=== PATIENT | male | born 1975 | race Caucasian/White ===

== ENCOUNTER 2022-05-16 05:51 | Day surgery (SDC) | payer OTHER, SELFPAY ==
[2022-05-16] MEDS: Lactated Ringers 1,000 ML 15 ML IV (06:05)
[2022-05-16 06:15] VITALS: BP 120/88; PULSE 94; RESP 18; TEMP 37; O2SAT 95; BMI 36.1
--- NOTE | 2022-05-16 07:17 | HP.PCM_ITS ---
History and Physical Date of Admission: 05/16/22 [facility] [address] [place] [address] OFFICE VISIT Date of Service:? 04/03/22 MR#: [id number] Acct: [id number] Name:VON DUNCAN Rep #: [id number] : 1975 ? ? Provider: Dr. Killian Rudd, Age/Sex:? 47/M ? ? Location: [facility] [place] Status: Signed Intake Vital Signs ? 03/31/2211:49 Height 6 ft 6 in Intake Visit Reasons:?LEFT KNEE Chief Complaint: left knee pain Is patient in pain?: Yes (left knee) Pain scale (1-10): 4 Allergies No Known Allergies Allergy (Verified 04/03/22 14:16) Medications acetaminophen 650 mg tablet,extended release 650 mg PO Q12H 01/03/21 [History Confirmed 04/03/22] lisinopril 40 mg tablet tablet PO 01/03/21 [History Confirmed 04/03/22] atorvastatin 20 mg tablet 20 mg PO DAILY 02/13/22 [History Confirmed 04/03/22] hydrochlorothiazide 12.5 mg capsule 12.5 mg PO DAILY 02/13/22 [History Confirmed 04/03/22] meloxicam 15 mg tablet 15 mg PO DAILY #30 tabs 04/03/22 [Rx Confirmed 04/03/22] PFSH Social History?(Updated 02/13/22 @ 11:27 by Sandhya Oneil) Smoking Status:? Never smoker alcohol intake:? never HPI LEFT KNEE Chief Complaint: left knee pain Details: Parts of this documentation were recorded by a scribe, this documentation accurately reflects the service provided and the decisions made by me, Dr. Killian Rudd, DO 04/03/22 [id number]. VON STEWART is a 47 year old M here today for left knee pain. He is here to discuss left knee surgery d/t his [facility] injury. He rates his pain 4/10 today. He advises he is experiencing popping even while wearing his knee brace. He states that he did win approval from the [employer]'s [employer]. to proceed with a? left knee arthroscopy Ortho Exam General General: Yes no acute distress (BMI 37.5) Neurologic: Yes alert and Yes oriented x3 Psychologic: Yes reasonable and appropriate Right Knee Patella Translation: 1 Left Knee Skin/Wound: Yes CDI, No ecchymosis, No erythema and No swelling Knee ROM: Yes ROM-Extension -20 to 0 and Yes ROM-Flexion 0-140 (110) Examination: Yes med jt line tenderness, No Lat jt line tenderness, Yes Omid's Test, No TTP Pes Anserine and No Illiotibial band tenderness Stability: NML: Anterior Drawer, NML: Posterior Drawer, NML: Valgus 0, NML: Valgus 30 (3mm medial gapping), NML: Varus 0 and NML: Varus 30 Patella Translation: 1 Supplemental Info 10/12/2021 MRI report from [facility] left knee: Moderate chondral thinning of the patellar and trochlear articular surfaces.? Complex flap tear medial meniscus extending from the posterior root to the anterior body 4 cm.? Moderate to severe chondral thinning of the medial compartment with full-thickness chondral loss and multifocal areas of penetrating erosion in the central weightbearing femoral condyle and tibial plateau with moderate spurring.? Chronic cleavage tear lateral meniscus 3 cm.? Concave subcortical fracture of the peripheral lateral tibial plateau.? Synovitis. 09/19/2021 x-rays on disc from [facility] left knee moderately severe degenerative changes seen worse in the medial compartment with joint space narrowing hypertrophic spurring there is also patellofemoral joint arthrosis with osteophytes? Coding Level of Care Code Off vis,est,level 3 Diagnoses Sprain of unspecified site of left knee, initial encounter? S83.92XA Assessment and Plan Assessment and Plan (1) Sprain of unspecified site of left knee, initial encounter: ?Status:?Acute ? ? ? Medications: New meloxicam ?? must stop 7 days prior to surger. do not take in conjunction with other NSAIDS tylenol is ok. 15 mg PO DAILY 30 tabs 0RF ? ? Plan Spoke with the patient about the surgery procedure for an arthroscopy. Explained that he will likely continue to have pain following the arthroscopy due to his severe medial compartment osteoarthritis. Explained the procedure may help with the painful popping as he does have large medial and lateral mensical tears. Spoke with him about the risks of stiffness. Reviewed the pre-operative plans with the patient. Risks and benefits of the procedure were fully explained, including but not limited to infection, neurovascular injury, continued pain, arthritis, stiffness, need for further surgery, re-injury, DVT, PE, general risks of anesthesia, and loss of limb or life. The patient understands all the risks and does wish to proceed with written consent. ? Patient states that surgery has been approved. We will look into that approval and will get him on the schedule as we did not request it. Escribed the patient meloxicam for his knee, which she cannot take with other NSAIDs and must stop 7 days prior to surgery. Follow up for post op appt or sooner if pain, swelling, numbness or associated symptoms, or concerns develop.? All questions answered. Patient in agreement of plan. 04/03/22 1545 <Electronically signed by Killian Rudd DO> Date Killian Rudd DO Cosigner Signature: Date (if applicable) ? CC: ? ANDREW De Jesus ~ I have examined the patient and the H&P has been reviewed. There are no clinical changes since date of exam.
[2022-05-16] MEDS: Bupiv/Epi 0.5% Mpf 30 ML Vial (07:56)
[2022-05-16] MEDS: Epinephrine (1 mg/ml) 1 MG/ML VIAL (08:18)
[2022-05-16] MEDS: Bupivacaine 0.25% 30 ML Vial (08:20)
[2022-05-16] MEDS: MethylPREDNISolone Acetate 40 MG/ML Vial IM (08:20)
--- NOTE | 2022-05-16 08:27 | OP.PCM_ITS ---
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 Complex tearing of the medial meniscus discoid lateral meniscus with complex tearing. Procedure: Left knee arthroscopic partial medial partial lateral meniscectomy Anesthesia: General Estimated blood loss: 5 mL Tourniquet time: 29minutes 300 mmHg Complications: none Indication for procedure: 47-year-old male patient who has had ongoing knee pain [employer]. injury that have significant arthrosis in his knee but sustained injury at work MRI evidence of medial lateral meniscus tear the patient did wish to proceed with an elective arthroscopic surgery to attempt to alleviate the symptoms. Risk benefits and alternatives of the procedure were reviewed including risk of bleeding infection nerve artery tissue damage need for further surgery continued pain and expected postoperative course. Procedure: The patient was met in the preoperative holding area. The operative extremity was identified by both patient and physician and family and marked. Patient was brought back to the operating room on a wheeled cart and transferred to the operating table in the supine position. Anesthesia was started. A well- padded tourniquet was placed on the operative extremity. A lower extremity leg quevedo was secured to the operative extremity. The contralateral extremity was well-padded and the end of the bed was flexed to 90 degrees. The patient was prepped and draped in the usual sterile fashion. A timeout was called to ensure the proper patient, procedure, and extremity were being contemplated. 0.5% Marcaine with epinephrine was injected into the planned incisional areas under the skin only. An Esmarch was used to exsanguinate the extremity and the to urniquet was inflated. An 11 blade scalpel was used to make a stab incision in the anterior lateral portal. The arthroscope was inserted into the intercondylar notch and inflow and outflow tubes were attached. Arthroscopic visualization began. The medial compartment was entered. An 18-gauge spinal needle was used to establish the placement for anterior medial portal. An 11 blade scalpel was used to make a stab incision. Blunt probe was inserted followed by a meniscal probe. Right away there was noted to be grade 4 large kissing lesions of the medial femoral condyle medial tibial plateau there is a large flipped tear of the medial meniscus with use of arthroscopic biting instruments and a shaver partial medial meniscectomy was performed the ACL was found to be intact with degenerative appearing. The lateral compartment was entered there was discoid lateral meniscus with complex tearing partial lateral meniscectomy was performed with arthroscopic shaver and ArthroCare The arth roscope was switched to the medial portal to complete the procedure. The medial and lateral gutters were inspected and were free of loose bodies. The patellofemoral joint was inspected demonstrate grade 3 cartilage wear of the patella and trochlea. There was good patellar tracking. The knee was thoroughly irrigated and drained. An intra-articular injection with 5 cc 0.5% Marcaine plain and 40 mg of Depo-Medrol was injected intra-articularly. The arthroscope was removed the portals were closed with 3-0 nylon arthroscopic stitches. Followed by Xeroform 4 x 4's ABDs web roll and an Hussein wrap. The tourniquet was let down and the drapes were removed. All counts were correct. The patient was brought back to the PACU in stable condition.
--- NOTE | 2022-05-16 08:32 | DCINST_ITS ---
Discharge Instructions Dressing / Incision Call your doctor if you observe: Shortness of breath and Chest pain Additional Dressing/Incision Instructions:: Ice and elevate next 72 hours .keep dressing on clean and dry for 48 hours then may remove begin showering daily but do not submerge in tub or pool. After shower may apply Band-Aids . Encourage knee range of motion weightbearing as tolerated, use crutches until confident in knee then may discontinue. No strenuous activity. When not ambulating keep iced and elevated next 72 hours. Do not mix pain medication with recreational drugs or alcohol only take as prescribed can be addictive and abusive, call with any questions or concerns. May take 600 mg of ibuprofen 3 times a day and 1000 mg of Tylenol 4 times a day to minimize narcotic use . Follow Up Care Please Follow Up With: Killian Rudd DO When: 2 weeks Test Results: Test results from this visit will be discussed in further detail at your follow- up appointment, if applicable. Discharge Plan Admission Attending Provider: Killian Rudd Primary Care Provider: Francisco Echavarria Discharge Orders/Prescriptions Prescriptions: New oxycodone 5 mg tablet 5 - 10 mg PO Q4H PRN (Reason: pain) 5 Days Qty: 30 0RF No Action acetaminophen 650 mg tablet extended release 650 mg PO Q12H lisinopril 40 mg tablet 40 tablet PO DAILY atorvastatin 20 mg tablet 20 mg PO DAILY hydrochlorothiazide 12.5 mg capsule 12.5 mg PO DAILY glucosamine sulfate [Glucosamine] 500 mg Tablet 500 mg PO DAILY Rx Instructions: administer with a meal coenzyme Q10 100 mg Capsule 100 mg PO DAILY Fish Oil 1,000 mg Capsule 1 cap PO DAILY Referrals / Follow Up: Francisco Echavarria MD [Primary Care Provider] - Disposition Disposition (needs filled in before D/C Order can be placed): Home, Self Care
[2022-05-16 08:41] VITALS: BP 106/84; BP 120/88; PULSE 94; RESP 16; TEMP 36.8; O2SAT 100
[2022-05-16 08:45] VITALS: BP 111/77; BP 120/88; PULSE 98; RESP 16; O2SAT 97
[2022-05-16 09:00] VITALS: BP 120/88; BP 121/74; PULSE 99; RESP 16; TEMP 36.9; O2SAT 97
[2022-05-16] MEDS: oxyCODONE 5 MG Tablet PO (09:30)
[2022-05-16 09:45] VITALS: BP 120/88
== END 2022-05-16 09:55 | disposition home or self-care (01) ==
LOC: SDC 05:52 → AC 05:53
PROVIDERS: PCP Family Medicine; Referring Provider Orthopaedic Surgery; Visit Provider Orthopaedic Surgery
PROC: (CPT 29870; principal; 2022-05-16 07:10)
DX: S83.232A Complex tear of medial meniscus, current injury, left knee, initial encounter (principal); S83.272A Complex tear of lateral meniscus, current injury, left knee, initial encounter; M17.12 Unilateral primary osteoarthritis, left knee; X58.XXXA Exposure to other specified factors, initial encounter; Y99.0 Civilian activity done for income or pay; Z79.1 Long term (current) use of non-steroidal anti-inflammatories (NSAID); Z79.899 Other long term (current) drug therapy
CPT/HCPCS: 29880; 20610; 01400; J7120; J2405

== ENCOUNTER 2022-09-05 08:30 | Outpatient (RCR) | payer OTHER, SELFPAY ==
--- NOTE | 2022-06-23 08:35 | HP.PTEVAL ---
Patient's Visit Information VON STEWART is a 47 year old M referred to Physical Therapy by SCAR Nunez with a diagnosis of L knee arthroscopy 05/16/22. Date of Evaluation: 06/23/22 Physical Therapist: Raymundo Reyes, PT, ATC - Visit Plan Frequency: 2-3x /Week Duration: 4 Weeks Plan: L knee stretching and strengthening, balance and proprio, core strengthening, bike, and HEP. - Subjective DOI: 09/23/21. DOS: 05/16/22. Pt reports he had to have surgery to repair his L lateral and medial meniscus and to clean out arthritis that was in his L knee. Pt reports he has been excitied to begin PT, but was waiting until it was approved by [facility]. 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 Pt notes the pain was not an immediate pain, but became more noticeable as the day went on. Pt reports he went to the surgeons at the beginning and received an MRI which revealed the tears. However, [facility] denied his surgery at the time claiming he had torn his meniscus previously. Pt reports after obtaining a material liaison, he was finally able to have his surgery. Pt reports he is glad he had the surgery at this time. Pt notes the pain is much better, but the pain and swelling have remained about the same. Pt reports he has some tingling and numbness surrounding his incisional sites. No sleep difficulty at this time secondary to pain. Pt reports he has stairs to get in and out of his house which he has to negotiate one step at a time. 6/10 pain while sitting at rest, 9/10 pain at worst (most of the time when he walks) - Pain L knee Pain Intensity (Out of 10): 6 Pain Intensity Range: 9 - Objective Neuro: B LE sensation is WNL to light touch. B achilles reflex= 2/3. Girth at joint line: R knee 42 cm, 46 cm L. ROM: R knee 0-102 degrees (maybe limited secondary to brace on the knee), L knee 0-93 degrees. MMT: R knee flex= 31, ext= 42 #F: L knee flex= 9, ext= 21 #F. Gait: Pt is able to ambulate 450 feet until needing to stop secondary to pain in the posterior aspect of L knee - Balance/Special Test Scores Lower Extremity Functional Score: 16 - Goals Goal 1:: Decrease L knee pain x 50% to aid with IADL's Goal Time Frame: 4-6 Weeks Goal 2:: Increase L knee strength x 10#F to aid with stair negotiation Goal Time Frame: 4-6 Weeks Goal 3:: Increase L knee flexion ROM x 20-30 degrees to aid with increasing 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 into truck Goal Time Frame: 4-6 Weeks Goal 4:: I with HEP Goal Time Frame: 4-6 Weeks - Rehabilitation Potential Physical Therapy Diagnosis: Pt has L knee pain, weakness, and limited ROM secondary to being s/p L knee arthroscopy Rehabilitation Potential: Good - Anticipated Interventions Patient/Client Instruction: Educate patient on: Condition, Plan of Care For the Purpose of:: To improve self management Therapeutic Exercise to Include: Strength training, Endurance training, Balance training, Flexibilty training, Passive ROM, Active ROM, Dynamic Lumbar Stabilization For the Purpose of:: To decrease pain, To increase ROM, To improve muscle performance and motor function IF ES: Yes Cryotherapy (ice pack, ice massage): Yes For the Purpose of:: To decrease pain Thank you for the opportunity to evaluate your patient. For Medicare and Medicare HMO plans, please review the plan of care and approve it. It will need to be FAXED BACK to us at [phone] for Medicare purposes. For Medicare only, by signing this I certify the plan of care. Please let me know if there are questions or concerns regarding this plan of care. Physician Signature: Date:
--- NOTE | 2022-09-05 08:55 | HP.PTREVAL ---
SCAR Nunez, It has been my pleasure to treat VON STEWART over the last 30 visits for L knee arthroscopy 05/16/22. Please see the progress note below for an update on the physical therapy plan of care! Subjective: Pt reports he is definitely getting stronger Objective/Function: L knee pain ranges from 3-5/10. L knee ROM: 0-110 degrees. L knee strength: flex= 42, ext= 58 #F. Pt is progressing well towards Rx goals, but still lacks functional ROM to return to work and displays increased pain with most activity Plan Plan: attempt to obtain a new C-9 for further Rx to focus on ROM, work conditioning, and overall strengthening of L LE Balance/Gait/Functional tests - Balance/Special Test Scores Lower Extremity Functional Score: 30 Goals Goal 1:: Decrease L knee pain x 50% to aid with IADL's Goal Time Frame: 4-6 Weeks Goal Progress: Progressing Goal 2:: Increase L knee strength x 10#F to aid with stair negotiation Goal Time Frame: 4-6 Weeks Goal Progress: Goal Met Goal 3:: Increase L knee flexion ROM x 20-30 degrees to aid with increasing 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 into truck Goal Time Frame: 4-6 Weeks Goal Progress: Progressing Goal 4:: I with HEP Goal Time Frame: 4-6 Weeks Goal Progress: Progressing Anticipated Interventions Patient/Client Instruction: Educate patient on: Condition, Plan of Care For the Purpose of:: To improve self management Therapeutic Exercise to Include: Strength training, Endurance training, Balance training, Flexibilty training, Passive ROM, Active ROM, Dynamic Lumbar Stabilization For the Purpose of:: To decrease pain, To increase ROM, To improve muscle performance and motor function IF ES: Yes Cryotherapy (ice pack, ice massage): Yes For the Purpose of:: To decrease pain Please do not hesitate to contact me at [phone] by phone or if you have questions or concerns regarding this new plan of care! Sincerely, Raymundo Reyes, PT, ATC
--- NOTE | 2022-12-06 09:01 | HP.PT.NRP ---
Patient Information Patient Information: VON STEWART was seen in my office for initial evaluation on 06/23/22. The following Plan of Care was established for this patient: POC Established Initial Frequency: 2-3x /Week Initial Duration: 4 Weeks Anticipated Interventions Patient/Client Instruction: Educate patient on: Condition and Plan of Care For the Purpose of:: To improve self management Therapeutic Exercise to Include: Strength training, Endurance training, Balance training, Flexibilty training, Passive ROM, Active ROM and Dynamic Lumbar Stabilization For the Purpose of:: To decrease pain, To increase ROM and To improve muscle performance and motor function IF ES: Yes Cryotherapy (ice pack, ice massage): Yes For the Purpose of:: To decrease pain Last Seen Last Seen: This patient was last seen in our office . Pertinent comments regarding their Physical therapy will appear below: Pt was treated for 30 PT visits for L knee pain through the date of 09/05/22. Pt has not returned through todays date secondary to no further visits being approved and is discontinued at this time. At this point I will be discontinuing this patient from physical therapy. I would be happy to see this patient again in the future if found appropriate by the physician. Thank you! Raymundo Reyes, PT, ATC Balance/Gait/Functional tests Balance/Special Test Scores Lower Extremity Functional Score: 30
== END 2022-09-05 19:00 | disposition home or self-care (01) ==
LOC: PT 08:30
PROVIDERS: PCP Family Medicine; Referring Provider Physician Assistant; Visit Provider Physician Assistant
DX: Z47.89 Encounter for other orthopedic aftercare (principal); G89.18 Other acute postprocedural pain
CPT/HCPCS: 97014; 97032; 97110; 97161; 97164; G0283

== ENCOUNTER 2023-12-07 08:00 | Outpatient (RCR) | payer OTHER, SELFPAY ==
--- NOTE | 2023-11-09 10:44 | HP.PTEVAL ---
Patient's Visit Information Visit Information Visit Information: VON STEWART is a 48 year old M referred to Physical Therapy by Dr. Pietro Sauer MD with a diagnosis of R TKA, DOS: 10/02/23. Date of Evaluation: 11/09/23 Physical Therapist: Rocael Watson DPT Visit Plan Frequency: 3x /Week Duration: 6 Weeks Plan: 1) knee ROM progressing to TKE and 120deg of flexion, Add in joint mobs to assist of both tib/fib and patella. 2) RLE strengthening CKC exercises. 3) vaso for edema control with ice Subjective Subjective: Pt. is here today for his initial evaluation with diagnosis of R TKA DOS: October 02, 3023. Pt. arrives using SPC with good tolerance. Pt. reports overall pain is minimal. He did have HH PT for the last 5 weeks. No calf pain, no fever, no blurred vision. He reports being HEP compliant with ROM stretching, and some squatting for strengthening. 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 Pt. is also having issues with L knee with previous arthroscopies with intent on replacing later this year. Pt. is hopeful to get back to exercising and increasing his ROM and strength. Pain R knee: Pain Intensity (Out of 10): 2 Pain Intensity Range: 0 and 4 Objective Objective: POSTURE: Pt. has decent posture in stance, close to full TKE in stance with slight increase in wt. shifting to L side. PALPATION: Good well healing incision, without signs of infection. Negative homans sign. No calf pain. NEURO: normal sensation in BLEs. Pt. has normal achilles DTR bilaterally. Pt. is able to rise on heels and toes without issues. ROM: AROM Knee: 0-5-97deg. PROM: 0-3-104deg. MMT: LLE: knee ext 32.1#, flexion 24.3# RLE: knee ext: 21.3#, flexion 22.3#, PT. able to complete SLR with minimal lag. GAIT: Pt. ambulates with cane with good use. Decreased knee flexion during swing and slight loss of TKE during stance phase. Normal step length noted. STAIRS: Pt. is able to complete with reciprocal pattern to ascend with 2 HR with some mild soreness. Pt. has increased difficulty with descending, but tends to load RLE only due to L knee issues. Balance/Special Test Scores TUG Test Time Seconds: 18.1 30 Second Chair Rise Test Seconds: 11 WOMAC Total Score: 48 WOMAC Percentatge: 50.0000 Goals Goal 1:: LTG: pt. to be I with HEP for RLE ROM and strengthening. Goal Time Frame: 4-6 Weeks Goal 2:: STG: pt. to have increased R TKE to 0deg allowing for better gait mechanics. Goal Time Frame: 2-4 Weeks Goal 3:: LTG: pt. to have increased R knee flexion to 120deg allowing for better ability to descend stairs. Goal Time Frame: 4-6 Weeks Goal 4:: LTG: Pt. to complete TUG without AD with time less than 10sec indicating overall increased stability with functional mobility. Goal Time Frame: 4-6 Weeks Goal 5:: LTG: Pt. to negotiate stairs with reciprocal pattern with 1 HR without increase in B knee pain. Goal Time Frame: 4-6 Weeks Rehabilitation Potential Physical Therapy Diagnosis: Pt. has signs and symptoms consistent with R TKA, DOS: 10/02/23. Pt. has marked hypomobility, weakness, difficulty with walking and increased pain. Pt. would benefit from PT to initially progress his ROM then follow up with strengthening in order to get back to all functional and recreational activities without limitations. Rehabilitation Potential: Excellent Anticipated Interventions Patient/Client Instruction: Educate patient on: Condition, Plan of Care, Risk Factors and Benefits of Fitness Program For the Purpose of:: To facilitate caregiver knowledge, To improve self management, To prevent re-injury, To improve ability to perform tasks related to life management and To improve tolerance to ADL's Therapeutic Exercise to Include: Strength training, Power training, Balance training, Body mechanics, Postural training, Flexibilty training, Passive ROM and Active ROM For the Purpose of:: To decrease pain, To decrease swelling/inflammation, To increase ROM, To improve nutrient delivery to tissue, To increase oxygenation perfusion, To improve muscle performance and motor function, To improve ability to perform ADL's and To increase tolerance to activity/condition/position Manual Therapy Techniques to Include: Scar massage, Mobilization and Passive ROM For the Purpose of:: To decrease pain, To decrease swelling/inflammation, To increase ROM, To improve nutrient delivery to tissue and To increase oxygenation perfusion Cryotherapy (ice pack, ice massage): Yes Vasopneumatic device: Yes For the Purpose of:: To decrease pain, To decrease swelling/inflammation and To increase ROM Text: Thank you for the opportunity to evaluate your patient. For Medicare and Medicare HMO plans, please review the plan of care and approve it. It will need to be FAXED BACK to us at [phone] for Medicare purposes. For Medicare only, by signing this I certify the plan of care. Please let me know if there are questions or concerns regarding this plan of care. Physician Signature: Date:
--- NOTE | 2023-12-07 08:47 | HP.PTDCSUM ---
Discharge Summary D/C summary: It has been my pleasure to treat VON STEWART referred by Dr. Pietro Sauer MD, with the diagnosis of R TKA, DOS: 10/02/23 for a total of 11 visit(s). Discharge Date: 12/07/23 Please see the following information for a summary of their discharge status. Subjective Subjective: Pt. reports overall doing well. He reports being 95% better overall. Pt. reports no pain currently. Pain R knee: Pain Intensity (Out of 10): 0 Overall Improvement % Improvement: 95 Objective Objective/Function: ROM: PROM: 0-0-117deg. AROM 0-2-113. Pt. reports no major pain with all ROM. MMT: RLE: knee: ext 32.4#, flexion 23.1#. GAIT: Pt. has good knee flexion during swing and good TKE during stance phase. No antalgic pattern on LLE, slight on R LE. STAIRS: NO issues with loading LLE, pt. is painful in RLE. Good stability noted in L knee with all functional activities. Pt. to continue to stretch and work on functional mobility. Pt. is having is other knee operated on in 2 weeks. He will be DC from PT at this point in time. Goals Goal 1:: LTG: pt. to be I with HEP for RLE ROM and strengthening. Goal Progress: Goal Met Goal 2:: STG: pt. to have increased R TKE to 0deg allowing for better gait mechanics. Goal Progress: Goal Met Goal 3:: LTG: pt. to have increased R knee flexion to 120deg allowing for better ability to descend stairs. Goal Progress: Progressing Goal 4:: LTG: Pt. to complete TUG without AD with time less than 10sec indicating overall increased stability with functional mobility. Goal Progress: Goal Met Goal 5:: LTG: Pt. to negotiate stairs with reciprocal pattern with 1 HR without increase in B knee pain. Goal Progress: Goal Met Plan Plan: DC from PT D/C Information d/c sentence: If there are questions or concerns regarding this patient's physical therapy, please feel free to call me at [phone]. Thank you for the referral of this patient. Sincerely, Rocael Harrell Sipos, DPT Balance/Gait/Functional tests Balance/Special Test Scores TUG Test Time Seconds: 9.1 Tug Test: <10 sec.=free mobile 30 Second Chair Rise Test Seconds: 11 WOMAC Total Score: 48 WOMAC Percentage: 50.0000 Improvement % Improvement: 95
== END 2023-12-07 19:00 | disposition home or self-care (01) ==
LOC: PT 08:00
PROVIDERS: PCP Family Medicine; Referring Provider Orthopaedic Surgery; Visit Provider Orthopaedic Surgery
DX: M17.11 Unilateral primary osteoarthritis, right knee (principal); Z96.651 Presence of right artificial knee joint
CPT/HCPCS: 97016; 97110; 97161; 97530

== ENCOUNTER 2024-03-28 07:30 | Outpatient (RCR) | payer OTHER, SELFPAY ==
--- NOTE | 2024-02-29 08:20 | HP.PTEVAL ---
Patient's Visit Information Visit Information Visit Information: VON STEWART is a 48 year old M referred to Physical Therapy by Dr. Pietro Sauer MD with a diagnosis of L TKA 12/18/23. Date of Evaluation: 02/29/24 Physical Therapist: Carroll Avila, DPT, OCS, CSCS Visit Plan Frequency: 2-3x /Week Duration: 4-6 Weeks Plan: 2-3x/week for 4-6 weeks. L knee treatment. patella mobs quad [id number] adn streetching with IASTM to scar and quad, ITB PROM L knee spinning bike without compensation Pt already doing gym workout on own adn is I, focus soft tissue adn knee ROM. Instruct HEp with HO on inf patella mobs 10x, quad stretch 5x 30 each, knee rom flexion with Op sitting and supine 10x all 2x/day with HO Subjective Subjective: L TKA in December, September had R one done. Has been having home PT on the L knee and started working out at 2 weeks ago. it is going well. Has some pain after exercises for 30 minutes. Walking well now, has steps at home and up is OK, down is shaky and uses railing(feels weaker). Sleep is OK Not employed due to knees. 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 HEP: squats, heel raises, band stretches, steps. In clinic: doing normal workout including leg machines just has some pain. leg curls, knee extension, leg press, hp abd uction, hip adduction. Doing hip ext. Basic ADLs: all I. Hobbies: barbequing, has been doing it. Ride bike, has not started this as he has a trail bike. Wants more ROM as the exercises ar elimited due to ROM deficits causing tightness. Pain L knee: Pain Intensity (Out of 10): 0 Pain Intensity Range: 0 and 5 Comment: shopping was 5/10 multiple stores Objective Objective: Walks into PT I with good gait pattern and no pain. Trasnfers chair and bed I, generally stiff. Steps are reciprocal with pain desecnding L knee and railing due to this but good and strong. patella L side stiff in inferior movement vs R. AROM R knee 0-05 and PROm to 110, L knee 0-88 and PROM to 93. stiff and painful end range of flexion. quad very tight L vs R in prone. strength hips 4/5 abd and ext and rotations, 4 flexion, knee 4+ B, ankles 4+ B. Incision is anterior and healed well with some obvious scar tissue sticking mildly to tissue underneath it. Balance/Special Test Scores Functional Gait Assessment Score: 30 % Disability: 0 WOMAC Total Score: 23 WOMAC Percentatge: 76.0500 Goals Goal 1:: 0-110 aROM L knee Goal Time Frame: 4-6 Weeks Goal 2:: ride bike in gym without stiffness at flexion adn plan to ride outdoor bike Goal Time Frame: 4-6 Weeks Goal 3:: up and down steps without pain Goal Time Frame: 4-6 Weeks Rehabilitation Potential Physical Therapy Diagnosis: stiffness and diminished ROM in L knee limiting funciton Rehabilitation Potential: Good Anticipated Interventions Patient/Client Instruction: Educate patient on: Condition and Plan of Care For the Purpose of:: To decrease pain, To increase ROM, To improve nutrient delivery to tissue and To improve gait and locomotor functions Therapeutic Exercise to Include: Flexibilty training, Passive ROM and Active ROM For the Purpose of:: To decrease pain, To increase ROM, To improve nutrient delivery to tissue and To improve muscle performance and motor function Manual Therapy Techniques to Include: Mobilization, Passive ROM and Soft tissue mobilization Comment: IASTM For the Purpose of:: To decrease pain, To increase ROM and To improve nutrient delivery to tissue Text: Thank you for the opportunity to evaluate your patient. For Medicare and Medicare HMO plans, please review the plan of care and approve it. It will need to be FAXED BACK to us at [phone] for Medicare purposes. For Medicare only, by signing this I certify the plan of care. Please let me know if there are questions or concerns regarding this plan of care. Physician Signature: Date:
--- NOTE | 2024-03-28 08:18 | HP.PTDCSUM ---
Discharge Summary D/C summary: It has been my pleasure to treat VON STEWART referred by Dr. Pietro Sauer MD, with the diagnosis of L TKA 12/18/23 for a total of 13 visit(s). Discharge Date: 03/28/24 Please see the following information for a summary of their discharge status. Subjective Subjective: Doing all right, still working out in gym on his own. No problems. ROM is getting better. Steps at home are a little better, still slight coming down 3/10, No other pain. Pain L knee: Pain Intensity (Out of 10): 0 Overall Improvement % Improvement: 95 Objective Objective/Function: 0-108 AROM L knee today, PROM 0-115 with discomfort transiently. 107 on Leg press. Walking easily without pain Steps reciprocally without rail with just some slight end L knee discomfort transiently descending. Overall doing very well. Goals Goal 1:: 0-110 aROM L knee Goal Progress: Progressing Goal 2:: ride bike in gym without stiffness at flexion adn plan to ride outdoor bike Goal Progress: Goal Met Goal 3:: up and down steps without pain Goal Progress: Progressing Plan Plan: d/c to gym and home program D/C Information d/c sentence: If there are questions or concerns regarding this patient's physical therapy, please feel free to call me at [phone]. Thank you for the referral of this patient. Sincerely, Carroll Avila, DPT, OCS, CSCS Balance/Gait/Functional tests Balance/Special Test Scores Functional Gait Assessment Score: 30 % Disability: 0 WOMAC Total Score: 16 WOMAC Percentage: 83.3400 Improvement % Improvement: 95
== END 2024-03-28 19:00 | disposition home or self-care (01) ==
LOC: PT 07:30
PROVIDERS: PCP Family Medicine; Referring Provider Orthopaedic Surgery; Visit Provider Orthopaedic Surgery
DX: Z96.653 Presence of artificial knee joint, bilateral (principal)
CPT/HCPCS: 97110; 97140; 97161; 97530

== ENCOUNTER → 2024-11-11 | Outpatient (CLI) | payer OTHER, SELFPAY ==
--- OUTSIDE RECORDS SUMMARY | 2024-11-11 06:15 | XMS RPT_ITS | CCD ---
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 enzymatic creatinine methodology. Electrolyte Balance 8.0 mEq/L Normal 4.0 - 15 .0 mEq/L ADM SS Eosinophils (Bld) [#/Vol] 0.1 103/mcL Normal 0.0 - 0.7 10^3/mcL [facility] SS Eosinophils/100 WBC (Bld) 0.9 % Normal 0.0 - 6.0 % [facility] SS Erythrocyte distribution width (RBC) [Ratio] 13.8 % Normal 11.5 - 15.5 % [facility] Estimated Glomerular Filtration Rate 110 ml/min/1.73sqm Invalid Interpretation Code [facility] Comment on above: Interpretive Data: Stages of Chronic Kidney Disease (CKD) Stage Description eGFR(ml/min/1.73 sq.m.) CKD 1 Normal kidney function or >=90 normal kindney function with possible kidney damage (ex. Proteinuria) CKD 2 Kidney damage with mild loss 60-89 of kidney function CKD 3a Mild to moderate loss of kidney 45-59 function CKD 3b Moderate to severe loss of 30-44 of kindey function CKD 4 Severe loss of kidney function 15-29 CKD 5 Kidney failure <15 Note: (go live 2024) the eGFR calculation was updated to the 2020 CKD-EPI creatinine equation without a race factor to calculate the eGFR results. Ethanol [Mass/Vol] mg/dL Invalid Interpretation Code ADM SS Globulin 3.2 G/dL Normal 1.5 - 3.8 G/dL [facility] Glucose [Mass/Vol] 165 mg/dL High 70 - 110 mg/dL [facility] Hematocrit (Bld) [Volume fraction] 37.3 % Low 40.0 - 52.0 % [facility] SS Hemoglobin (Bld) [Mass/Vol] 12.5 G/dL Low 13.0 - 17.5 G/dL [facility] SS Lipase [Catalytic activity/Vol] 30 U/L Normal 12 - 53 U/L ADM Comment on above: Interpretive Data: * *Note - New Reference Range in effect 19 Lymphocytes (Bld) [#/Vol] 2.2 103/mcL Normal 0.9 - 4.3 10^3/mcL [facility] SS Lymphocytes/100 WBC (Bld) 25.0 % Normal 20.0 - 40.0 % [facility] MCH (RBC) [Entitic mass] 29.3 pg Normal 27.0 - 33.0 pg AH Workflow SS MCHC 33.5 G/dL Normal 32.0 - 36.0 G/dL AH Workflow SS MCV (RBC) [Entitic vol] 87.5 fL Normal 81.0 - 100.0 fL AH Workflow SS Monocyte distribution width Auto (Bld) [Entitic vol] 18.09 1 Normal 0.00 - 20.00 Workflow SS Comment on above: Result Comment: For ED adult patients suspected of sepsis, MDW<=20.0 does not rule out sepsis or risk of sepsis Monocytes (Bld) [#/Vol] 0.7 103/mcL Normal 0.1 - 1.4 10^3/mcL Workflow SS Monocytes/100 WBC (Bld) 8.5 % Normal 2.0 - 13.0 % AH Workflow SS Myoglobin [Mass/Vol] 41.0 ng/mL Normal 3.0 - 1 10.0 ng/mL ADM SS Comment on above: Interpretive Data: * *Note - New Reference Range in effect 19 Neutrophils (Bld) [#/Vol] 5.8 103/mcL Normal 2.3 - 8.1 10^3/mcL Workflow SS Neutrophils/100 WBC (Bld) 65.0 % Normal 50.0 - 75.0 % AH Workflow SS Platelet mean volume (Bld) [Entitic vol] 6.8 fL Normal 6.4 - 10.5 fL AH Workflow SS Platelets (Bld) [#/Vol] 291 103/mcL Normal 150 - 450 10^3/mcL AH Workflow SS Potassium [Moles/Vol] 3.8 mmol/L Normal 3.5 - 5.0 mEq/L ADM SS Protein [Mass/Vol] 7.0 G/dL Normal 5.7 - 8.2 G/dL ADM SS PT Coag (PPP) [Time] 12.8 s Normal 9.0 - 1 4.4 seconds [facility] SS Comment on above: Interpretive Data: E ffective 12/17/07, Protime results may be affected by some antibiotics (i.e. Ciprofloxacin, Azithromycin, Bactrim) which may potentiate the action of oral anticoagulants, with further increases in Protime/INR. PT International Ratio 1.1 ratio Invalid Interpretation Code [facility] SS Comment on above: Interpretive Data: T nakul [employer] (CHEST, 1991, 102:312S-25S) recommended therapeutic range for oral anticoagulant therapy is: LOW RISK: Prophylaxis of venous thrombosis INR: 2.0-3.0 Treatment of pulmonary embolism 2.0-3.0 Prevention of systemic embolism 2.0-3.0 HIGH RISK: Mechanical prosthetic valves 2.5-3.5 RBC (Bld) [#/Vol] 4.26 106/mcL Low 4.50 - 6.0 0 10^6/mcL Workflow SS Sodium [Moles/Vol] 140 mmol/L Normal 136 - 145 mEq/L ADM SS Troponin I.cardiac DL <= 0.01 ng/mL [Mass/Vol] 3 ng/L Normal 0 - 54 ng/L ADM SS Comment on above: Interpretive Data: High Sensitive Troponin I Reference Ranges: Female: 0-34 ng/L Male: 0-54 ng/L Testing performed on Before [employer] analyzer using direct chemiluminescent technology. Urea nitrogen [Mass/Vol] 17.0 mg/dL Normal 8.0 - 22.0 mg/dL ADM SS Urea nitrogen/Creatinine [Mass ratio] 22.1 ratio High 10.0 - 22.0 ratio ADM SS WBC (Bld) [#/Vol] 8.8 103/mcL Normal 4.5 - 10.8 10^3/mcL Workflow SS LIPon 08-14-2024 Lipase Level 30 U/L Normal 12-53 [facility] Comment on above: Result Comment: No te - New Reference Range in effect 19 Performed By: #### A SERENE MUÑOZ, APTT, ALC, GFR, TROPHS, ADIFF, LIP, CBC, PRO, CMP #### [address] [address] MYOSon 08-14-2024 Myoglobin [Mass/Vol] 41.0 ng/mL Normal 3.0-110.0 [facility] Comment on above: Result Comment: No te - New Reference Range in effect 19 Performed By: #### A SERENE MUÑOZ, APTT, ALC, GFR, TROPHS, ADIFF, LIP, CBC, PRO, CMP #### [address] [address] PROon 08-14-2024 INR Coag (PPP) [Relative time] 1.1 {INR} Normal [facility] Comment on above: Result Comment: [employer] [place] (CHEST, 1992, 102:312S-25S) recommended therapeutic range for oral anticoagulant therapy is: LOW RISK: Prophylaxis of venous thrombosis INR: 2.0-3.0 Treatment of pulmonary embolism 2.0-3.0 Prevention of systemic embolism 2.0-3.0 HIGH RISK: Mechanical prosthetic valves 2.5-3.5 Performed By: #### A SERENE MUÑOZ, APTT, ALC, GFR, TROPHS, ADIFF, LIP, CBC, PRO, CMP #### [place] [address] PT Coag (PPP) [Time] 12.8 s Normal 9.0-14.4 [facility] MA[facility] Comment on above: Result Comment: Effe ctive 12/17/07, Protime results may be affected by some antibiotics (i.e. Ciprofloxacin, Azithromycin, Bactrim) which may potentiate the action of oral anticoagulants, with further increases in Protime/INR. Performed By: #### A SERENE MUÑOZ, APTT, ALC, GFR, TROPHS, ADIFF, LIP, CBC, PRO, CMP #### [place] [id number] TROPHSon 08-14-2024 High Sensitivity Troponin I 3 ng/L Normal 0-54 [facility] Comment on above: Result Comment: High Sensitive Troponin I Reference Ranges: Female: 0-34 ng/L Male: 0-54 ng/L Testing performed on Before the Call analyzer using direct chemiluminescent technology. Performed By: #### A SERENE MUÑOZ, APTT, ALC, GFR, TROPHS, ADIFF, LIP, CBC, PRO, CMP #### [place] [address] XR CHEST 1 VIEWon 08-14-2024 XR CHEST 1 VIEW ORIGINAL EXAMINATION: ONE XRAY VIEW OF THE CHEST 08/14/2024 10:01 pm COMPARISON: None. HISTORY: ORDERING SYSTEM PROVIDED HISTORY: Reason for Exam: pain; trauma patient FINDINGS: Suboptimal exam due to patient body habitus and low lung volumes. Costophrenic angles are sharp. No radiographic pneumothorax. Streaky bibasilar opacity/atelectasis . Degenerative changes of the spine. IMPRESSION: Low lung volumes. Interpreted by: Taiwo Kemp Preliminary Report By: Taiwo Kemp Electronically signed By Taiwo Kemp Dictated Date: 08/14/2024 10:26:33 PM Prelim Date: 08/14/2024 10:27:07 PM Sign Date: 08/14/2024 10:27:07 PM Ordering Provider: [facility] MA[facility] XR HAND AND WRIST 6 VIEWS LE FTon 08-14-2024 XR HAND AND WRIST 6 VIEWS LEFT ORIGINAL EXAMINATION: 3 XRAY VIEWS OF THE LEFT HAND and wrist each. 08/14/2024 10:01 pm COMPARISON: None. HISTORY: ORDERING SYSTEM PROVIDED HISTORY: Reason for Exam: pain FINDINGS: No fracture or dislocation. No unexpected radiopaque foreign body. Degenerative changes. IMPRESSION: No fracture or dislocation. Interpreted by: Taiwo Kemp Preliminary Report By: Taiwo Kemp Electronically signed By Taiwo Kemp Dictated Date: 08/14/2024 10:23:48 PM Prelim Date: 08/14/2024 10:26:25 PM Sign Date: 08/14/2024 10:26:25 PM Ordering Provider: [facility] MAIN XR PELVIS 1 OR 2 VIEWSon XR PELVIS 1 OR 2 VIEWS ORIGINAL EXAMINATION: ONE XRAY VIEW OF THE PELVIS 08/14/2024 10:01 pm COMPARISON: None. HISTORY: ORDERING SYSTEM PROVIDED HISTORY: Reason for Exam: pain; trauma patient FINDINGS: Patient body habitus obscures some soft tissue and osseous detail. No definite acute fracture. The joint spaces are maintained. The pelvic ring is intact. Mild degenerative changes of the visualized lumbar spine. IMPRESSION: No definite acute fracture. I have personally reviewed the images of this examination and agree with the resident's findings and interpretation. Interpreted by: Taiwo Kemp Preliminary Report By: Amalia Shay Electronically signed By Taiwo Kemp Dictated Date: 08/14/2024 10:19:29 PM Prelim Date: 08/14/2024 10:21:02 PM Sign Date: 08/14/2024 10:30:38 PM Ordering Provider: [facility] BASIC METABOLIC PANELon 11-2 6-2024 BUN/CREATININE RATIO SEE NOTE: Normal 6-22 [facility] t [facility] Comment on above: Result Comment: Not Reported: BUN and Creatinine are within reference range. Performed By: #### 5 363, 43350, 7600, 496 #### [facility] of [address], [address] [place] [address] Oil Plant Operator: Delmar Romero MD Calcium [Mass/Vol] 10.0 mg/dL Normal 8.6-10.3 [facility] Comment on above: Performed By: #### 5 363, 18325, 7600, 496 #### [facility] [address], [address] [place] [address] Oil Plant Operator: Delmar Romero MD Chloride [Moles/Vol] 96 mmol/L Low 98-110 [facility] t Diagnostics Comment on above: Performed By: #### 5 363, 79851, 7600, 496 #### [facility] of [address], [address] [place] [address] [employer] Plant Operator: Delmar Romero MD CO2 [Moles/Vol] 28 mmol/L Normal 20-32 [facility] Comment on above: Performed By: #### 5 363, 43671, 7600, 496 #### [facility] [place] [address] [employer] Plant Operator: Delmar Romero MD Creatinine [Mass/Vol] 0.84 mg/dL Normal 0.60-1.[address] [facility] [address] Diagnostics Comment on above: Performed By: #### 5 363, 08510, 7600, 496 #### [facility] of [address], [address] [place] [address] [employer] Plant Operator: Delmar Romero MD GFR/1.73 sq M.predicted among non-blacks MDRD (S/P/Bld) [Vol rate/Area] 107 mL/min/{1.73_m2} Normal > OR = 60 [facility] Comment on above: Performed By: #### 5 363, 88188, 7600, 496 #### [facility] of [place] [address] Oil Plant Operator: Delmar Romero MD Glucose [Mass/Vol] 107 mg/dL High 65-99 [facility] Comment on above: Result Comment: Fasting reference interval For someone without known diabetes, a glucose value between 100 and 125 mg/dL is consistent with prediabetes and should be confirmed with a follow-up test. Performed By: #### 5 363, 79099, 7600, 496 #### [facility] [place] [address] [employer] Operator: Delmar Romero MD Potassium [Moles/Vol] 4.4 mmol/L Normal 3.5-5.[address] [facility] [address] Diagnostics Comment on above: Performed By: #### 5 363, 77674, 7600, 496 #### [facility] [place] [address] [employer] Plant Operator: Delmar Romero MD Sodium [Moles/Vol] 134 mmol/L Low 135-146 [facility] Comment on above: Performed By: #### 5 363, 60276, 7600, 496 #### [facility] [place] [address] [employer] Plant Operator: Delmar Romero MD Urea nitrogen [Mass/Vol] 17 mg/dL Normal 7-25 [facility] Comment on above: Performed By: #### 5 363, 31848, 7600, 496 #### [facility] [place] [address] [employer] Plant Operator: Delmar Romero MD HEMOGLOBIN A1con 04-29-2024 HEMOGLOBIN A1c 5.8 % of total Hgb High <5.7 [facility] Comment on above: Result Comment: For someone without known diabetes, a hemoglobin A1c value between 5.7% and 6.4% is consistent with prediabetes and should be confirmed with a follow-up test. For someone with known diabetes, a value <7% indicates that their diabetes is well controlled. A1c targets should be individualized based on duration of diabetes, age, comorbid conditions, and other considerations. This assay result is consistent with an increased risk of diabetes. Currently, no consensus exists regarding use of hemoglobin A1c for diagnosis of diabetes for children. Performed By: #### 5 363, 61145, 7600, 496 #### [facility] [address], [address] [place] [address] [employer] Plant Operator: Delmar Romero MD LIPID PANEL, [address] Cholesterol [Mass/Vol] 178 mg/dL Normal <200 [facility] Comment on above: Performed By: #### 5 363, 53497, 7600, 496 #### [facility] [address], [address] [place] [address] [employer] Plant Operator: Delmar Romero MD Cholesterol in HDL [Mass/Vol] 56 mg/dL Normal > OR = 40 [facility] Comment on above: Performed By: #### 5 363, 80454, 7600, 496 #### [facility] [address], [address] [place] [address] [employer] Plant Operator: Delmar Romero MD Cholesterol in LDL [Mass/Vol] 95 mg/dL Normal [facility] Comment on above: Result Comment: Refe rence range: <100 Desirable range <100 mg/dL for primary prevention; <70 mg/dL for patients with CHD or diabetic patients with > or = 2 CHD risk factors. LDL-C is now calculated using the Denis-Bo calculation, which is a validated novel method providing better accuracy than the Friedewald equation in the estimation of LDL-C. Denis GANDHI et al. RADHA. 2013;310(19): 3222-0181 (http://education.[employer].FM Global/faq/EDF884) Performed By: #### 5 363, 01334, 7600, 496 #### [facility] [address], [address] [place] [address] [employer] Plant Operator: Delmar Romero MD Cholesterol.total/Cho lesterol in HDL [Mass ratio] 3.2 {ratio} Normal <5.0 [facility] Comment on above: Performed By: #### 5 363, 09963, 7600, 496 #### [facility] [address], [address] [place] [address] [employer] Plant Operator: Delmar Romero MD NON HDL CHOLESTEROL 122 mg/dL (calc) Normal <130 [facility] Comment on above: Result Comment: For patients with diabetes plus 1 major ASCVD risk factor, treating to a non-HDL-C goal of <100 mg/dL (LDL-C of <70 mg/dL) is considered a therapeutic option. Performed By: #### 5 363, 88052, 2820, 496 #### [facility] [address], [address] [place] [address] [employer] Plant Operator: Delmar Romero MD Triglyceride [Mass/Vol] 178 mg/dL High <150 [facility] Comment on above: Performed By: #### 5 363, 95422, 5810, 496 #### [facility] [address], [address] [place] [address] [employer] Plant Operator: Delmar Romero MD PSA, TOTALon 04-29-2024 PSA, TOTAL 0.55 ng/mL Normal < OR = 4.00 [facility] Comment on above: Result Comment: The total PSA value from this assay system is standardized against the WHO standard. The test result will be approximately 20% lower when compared to the equimolar-standardized total PSA ([place]). Comparison of serial PSA results should be interpreted with this fact in mind. This test was performed using the Siemens chemiluminescent method. Values obtained from different assay methods cannot be used interchangeably. PSA levels, regardless of value, should not be interpreted as absolute evidence of the presence or absence of disease. Performed By: #### 5 363, 78956, 7270, 496 #### [facility] [address], [address] [place] [address] Oil Plant Operator: Delmar Romero MD Laboratory - Chemistry and C hemistry - challengeon 04-28-2024 Calcium [Mass/Vol] 10.0 mg/dL Normal 8.6 - 10. 3 mg/dL [facility] Chloride [Moles/Vol] 96 mmol/L Abnormal 98 - 11 0 mmol/L [facility] Cholesterol [Mass/Vol] 178 mg/dL Normal [facility] [employer] [employer] [facility]. Cholesterol in HDL [Mass/Vol] 56 mg/dL Normal [facility].; [facility], [facility] Cholesterol in LDL [Mass/Vol] 95 mg/dL Normal [facility].; [facility], [facility]. CO2 [Moles/Vol] 28 mmol/L Normal 20 - 32 mmol/L [facility].; [facility], [facility] Creatinine [Mass/Vol] 0.84 mg/dL Normal 0.60 - 1.29 mg/dL [facility].; [facility], [facility]. GFR/1.73 sq M.predicted among non-blacks MDRD (S/P/Bld) [Vol rate/Area] 107 mL/min/{1.73_m2} Normal [facility].; [facility], [facility] Glucose [Mass/Vol] 107 mg/dL Abnormal 65 - 99 mg/dL [facility].; [facility], [facility]. Potassium [Moles/Vol] 4.4 mmol/L Normal 3.5 - 5.3 mmol/L [facility].; [facility], [facility] Sodium [Moles/Vol] 134 mmol/L Abnormal 135 - 146 mmol/L [facility].; [facility], [facility]. Triglyceride [Mass/Vol] 178 mg/dL Abnormal [facility].; [facility], [facility] Urea nitrogen [Mass/Vol] 17 mg/dL Normal 7 - 25 mg/dL [facility] [employer].; [facility], [facility]. Laboratory - Hematology and Cell countson 04-28-2024 HbA1c (Bld) [Mass fraction] 5.8 % Abnormal [facility].; [facility], [facility] No Panel Informationon 04-28 BUN/CREATININE RATIO SEE NOTE: Normal 6 - 22 [facility].; [facility] CHOL/HDLC RATIO 3.2 Normal [facility].; [facility] [facility], [facility] NON HDL CHOLESTEROL 122 Normal [facility].; [facility], [facility] PSA, TOTAL 0.55 ng/mL Normal [facility].; [facility] PT D/C Summary (1)on 024 PT D/C Summary (1) [facility] Physical Therapy [facility] [address] [place] [address] / REHABILITATION SERVICES DISCHARGE SUMMARY MR#: [id number] Acct: [id number] Name: VON STEWART Rep #: [id number] : 1975 48 From: Carroll WARNERT, OCS, CSCS Referring Dr.: Dr. Pietro Sauer MD Status: RE G RCR Insurance: [facility] SELF PAY INSURANCE Discharge Summary D/C summary: It has been my pleasure to treat VON STEWART referred by Dr. Pietro Sauer MD, with the diagnosis of L TKA 12/18/23 for a total of 13 visit(s). Discharge Date: 03/28/24 Please see the following information for a summary of their discharge status. Subjective Subjective: Doing all right, still working out in gym on his own. No problems. ROM is getting better. Steps at home are a little better, still slight coming down 3/10, No other pain. Pain L knee: Pain Intensity (Out of 10): 0 Overall Improvement % Improvement: 95 Objective Objective/Function: 0-108 AROM L knee today, PROM 0-115 with discomfort transiently. 107 on Leg press. Walking easily without pain Steps reciprocally without rail with just some slight end L knee discomfort transiently descending. Overall doing very well. Goals Goal 1:: 0-110 aROM L knee Goal Progress: Progressing Goal 2:: ride bike in gym without stiffness at flexion adn plan to ride outdoor bike Goal Progress: Goal Met Goal 3:: up and down steps without pain Goal Progress: Progressing Plan Plan: d/c to gym and home program D/C Information d/c sentence: If there are questions or concerns regarding this patient's physical therapy, please feel free to call me at [phone]. Thank you for the referral of this patient. Sincerely, Carroll Avila, ALANAT, OCS, CSCS Balance/Gait/Functi onal tests Balance/Special Test Scores Functional Gait Assessment Score: 30 % Disability: 0 WOMAC Total Score: 16 WOMAC Percentage: 83.3400 Improvement % Improvement: 95 03/28/24 0818 CC: Dr. Francisco Echavarria MD; Dr. Pietro Sauer MD EBG Signed Normal [facility] Inital Evaluation (1) - PTon 02-29-2024 Inital Evaluation (1) - PT [facility] Physical Therapy [facility] [address] [place] [address] / REHABILITATION SERVICES INITIAL EVALUATION MR#: [id number] Acct: [id number] Name: VON STEWART Rep #: [id number] : 1975 48 From: Carroll Avila DPT, OCS, CSCS Referring Dr.: Dr. Peitro Sauer MD Status: RE G R Insurance: [facility] SELF PAY INSURANCE Patient's Visit Information Visit Information Visit Information: VON STEWART is a 48 year old M referred to Physical Therapy by Dr. Pietro Sauer MD with a diagnosis of L TKA 12/18/23. Date of Evaluation: 02/29/24 Physical Therapist: Carroll Avila DPT, OCS, CSCS Visit Plan Frequency: 2-3x /Week Duration: 4-6 Weeks Plan: 2-3x/week for 4-6 weeks. L knee treatment. patella mobs quad [id number] adn streetching with IASTM to scar and quad, ITB PROM L knee spinning bike without compensation Pt already doing gym workout on own adn is I, focus soft tissue adn knee ROM. Instruct HEp with HO on inf patella mobs 10x, quad stretch 5x 30 each, knee rom flexion with Op sitting and supine 10x all 2x/day with HO Subjective Subjective: L TKA in December, September had R one done. Has been having home PT on the L knee and started working out at 2 weeks ago. it is going well. Has some pain after exercises for 30 minutes. Walking well now, has steps at home and up is OK, down is shaky and uses railing(feels weaker). Sleep is OK Not employed due to knees. 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 HEP: squats, heel raises, band stretches, steps. In clinic: doing normal workout including leg machines just has some pain. leg curls, knee extension, leg press, hp abd uction, hip adduction. Doing hip ext. Basic ADLs: all I. Hobbies: barbequing, has been doing it. Ride bike, has not started this as he has a trail bike. Wants more ROM as the exercises ar elimited due to ROM deficits causing tightness. Pain L knee: Pain Intensity (Out of 10): 0 Pain Intensity Range: 0 and 5 Comment: shopping was 5/10 multiple stores Objective Objective: Walks into PT I with good gait pattern and no pain. Trasnfers chair and bed I, generally stiff. Steps are reciprocal with pain desecnding L knee and railing due to this but good and strong. patella L side stiff in inferior movement vs R. AROM R knee 0-05 and PROm to 110, L knee 0-88 and PROM to 93. stiff and painful end range of flexion. quad very tight L vs R in prone. strength hips 4/5 abd and ext and rotations, 4 flexion, knee 4+ B, ankles 4+ B. Incision is anterior and healed well with some obvious scar tissue sticking mildly to tissue underneath it. Balance/Special Test Scores Functional Gait Assessment Score: 30 % Disability: 0 WOMAC Total Score: 23 WOMAC Percentatge: 76.0500 Goals Goal 1:: 0-110 aROM L knee Goal Time Frame: 4-6 Weeks Goal 2:: ride bike in gym without stiffness at flexion adn plan to ride outdoor bike Goal Time Frame: 4-6 Weeks Goal 3:: up and down steps without pain Goal Time Frame: 4-6 Weeks Rehabilitation Potential Physical Therapy Diagnosis: stiffness and diminished ROM in L knee limiting funciton Rehabilitation Potential: Good Anticipated Interventions Patient/Client Instruction: Educate patient on: Condition and Plan of Care For the Purpose of:: To decrease pain, To increase ROM, To improve nutrient delivery to tissue and To improve gait and locomotor functions Therapeutic Exercise to Include: Flexibilty training, Passive ROM and Active ROM For the Purpose of:: To decrease pain, To increase ROM, To improve nutrient delivery to tissue and To improve muscle performance and motor function Manual Therapy Techniques to Include: Mobilization, Passive ROM and Soft tissue mobilization Comment: IASTM For the Purpose of:: To decrease pain, To increase ROM and To improve nutrient delivery to tissue Text: Thank you for the opportunity to evaluate your patient. For Medicare and Medicare HMO plans, please review the plan of care and approve it. It will need to be FAXED BACK to us at [phone] for Medicare purposes. For Medicare only, by signing this I certify the plan of care. Please let me know if there are questions or concerns regarding this plan of care. Physician Signature: __Date: 02/29/24 0820 CC: Dr. Francisco Echavarria MD; Dr. Pietro Sauer MD EBG Signed Normal [facility] PT D/C Summary (1)on 024 PT D/C Summary (1) [facility] Physical Therapy [facility] [address] [place] [address] [address] [place] [address] / REHABILITATION SERVICES DISCHARGE SUMMARY MR#: [id number] Acct: [id number] Name: VON STEWART Rep #: [id number] : 1975 48 From: Rocael Watson DPT Referring Dr.: Dr. Pietro Sauer MD Status: RE G RCR Insurance: [facility] SELF PAY INSURANCE Discharge Summary D/C summary: It has been my pleasure to treat VON STEWART referred by Dr. Pietro Sauer MD, with the diagnosis of R TKA, DOS: 10/02/23 for a total of 11 visit(s). Discharge Date: 12/07/23 Please see the following information for a summary of their discharge status. Subjective Subjective: Pt. reports overall doing well. He reports being 95% better overall. Pt. reports no pain currently. Pain R knee: Pain Intensity (Out of 10): 0 Overall Improvement % Improvement: 95 Objective Objective/Function: ROM: PROM: 0-0-117deg. AROM 0-2-113. Pt. reports no major pain with all ROM. MMT: RLE: knee: ext 32.4#, flexion 23.1#. GAIT: Pt. has good knee flexion during swing and good TKE during stance phase. No antalgic pattern on LLE, slight on R LE. STAIRS: NO issues with loading LLE, pt. is painful in RLE. Good stability noted in L knee with all functional activities. Pt. to continue to stretch and work on functional mobility. Pt. is having is other knee operated on in 2 weeks. He will be DC from PT at this point in time. Goals Goal 1:: LTG: pt. to be I with HEP for RLE ROM and strengthening. Goal Progress: Goal Met Goal 2:: STG: pt. to have increased R TKE to 0deg allowing for better gait mechanics. Goal Progress: Goal Met Goal 3:: LTG: pt. to have increased R knee flexion to 120deg allowing for better ability to descend stairs. Goal Progress: Progressing Goal 4:: LTG: Pt. to complete TUG without AD with time less than 10sec indicating overall increased stability with functional mobility. Goal Progress: Goal Met Goal 5:: LTG: Pt. to negotiate stairs with reciprocal pattern with 1 HR without increase in B knee pain. Goal Progress: Goal Met Plan Plan: DC from PT D/C Information d/c sentence: If there are questions or concerns regarding this patient's physical therapy, please feel free to call me at [phone]. Thank you for the referral of this patient. Sincerely, Rocael Watson, DPT Balance/Gait/Functi onal tests Balance/Special Test Scores TUG Test Time Seconds: 9.1 Tug Test: <10 sec.=free mobile 30 Second Chair Rise Test Seconds: 11 WOMAC Total Score: 48 WOMAC Percentage: 50.0000 Improvement % Improvement: 95 12/07/23 0847 CC: Dr. Francisco Echavarria MD; Dr. Pietro Sauer MD CLS Signed Normal [facility] Basic metabolic 2000 panelon 09-20-2023 Anion gap [Moles/Vol] 15 mmol/L Normal 10-20 [facility] Comment on above: Performed By: #### 2 4321-2 #### CALEB Harrell ([id number]) [facility] ([facility]) [address] [place] [address] Calcium [Mass/Vol] 9.8 mg/dL Normal 8.6-10.6 [facility] Comment on above: Performed By: #### 2 4321-2 #### CALEB CASTELLANOS L ([id number]) [facility] ([facility]) [address] [place] [address] Chloride [Moles/Vol] 102 mmol/L Normal 98-[address] [facility] Comment on above: Performed By: #### 2 4321-2 #### CALEB Harrell ([id number]) [facility] ([facility]) [address] [place] [address] CO2 [Moles/Vol] 28 mmol/L Normal 21-32 [facility] Comment on above: Performed By: #### 2 4321-2 #### CALEB Harrell ([id number]) [facility] ([facility]) [address] [place] [address] Creatinine [Mass/Vol] 0.94 mg/dL Normal 0.50-1.30 [facility] Comment on above: Performed By: #### 2 4321-2 #### CALEB Harrell ([id number]) [facility] ([facility]) [address] [place] [address] GFR/1.73 sq M.predicted MDRD (S/P/Bld) [Vol rate/Area] mL/min/{1.73_m2} Normal >60 [facility] Comment on above: Result Comment: Calc ulations of estimated GFR are performed using the 2020 CKD-EPI Study Refit equation without the race variable for the IDMS-Traceable creatinine methods. https://jasn.asnjournals.org/content//ASN.024124 7456 Performed By: #### 2 4321-2 #### CALEB Harrell ([id number]) [facility] ([facility]) [id number] [place] [address] Glucose [Mass/Vol] 108 mg/dL High 74-99 [facility] Comment on above: Performed By: #### 2 4321-2 #### CALEB Harrell ([id number]) [facility] ([facility]) [address] [place] [address] Potassium [Moles/Vol] 4.3 mmol/L Normal 3.5-5.3 [facility] Comment on above: Performed By: #### 2 4321-2 #### CALEB Harrell ([id number]) [facility] ([facility]) [address] [place] [address] Sodium [Moles/Vol] 141 mmol/L Normal 136-145 [facility] Comment on above: Performed By: #### 2 4321-2 #### CALEB Harrell ([id number]) [facility] ([facility]) [address] [place] [address] Urea nitrogen [Mass/Vol] 16 mg/dL Normal 6-23 [facility] Comment on above: Performed By: #### 2 4321-2 #### CALEB Harrell ([id number]) [facility] ([facility]) [address] [place] [address] 22444 CBC W Auto Differential pane l (Bld)on 09-20-2023 Basophils (Bld) [#/Vol] 0.06 x10*3/uL Normal 0.00-0.10 [facility] Comment on above: Performed By: #### 5 7021-8 #### CALEB Harrell ([id number]) [facility] ([facility]) [address] [place] [address]65[address] Basophils/100 WBC (Bld) 0.7 % Normal 0.0-2.0 [facility] Comment on above: Performed By: #### 5 7021-8 #### CALEB Harrell ([id number]) [facility] ([facility]) [address] [place] [address] Eosinophils (Bld) [#/Vol] 0.04 x10*3/uL Normal 0.00-0.70 [facility] Comment on above: Performed By: #### 5 7021-8 #### CALEB Harrell ([id number]) [facility] ([facility]) [address] [place] [address] Eosinophils/100 WBC (Bld) 0.5 % Normal 0.0-6.0 [facility] Comment on above: Performed By: #### 5 7021-8 #### CALEB Harrell ([id number]) [facility] ([facility]) [address] [place] [address] Erythrocyte distribution width (RBC) [Ratio] 13.7 % Normal 11.5-14.5 [facility] Comment on above: Performed By: #### 5 7021-8 #### CALEB Harrell ([id number]) [facility] ([facility]) [address] [place] [address] 76673 Hematocrit (Bld) [Volume fraction] 43.8 % Normal 41.0-52.0 [facility] Comment on above: Performed By: #### 5 7021-8 #### CALEB Harrell ([id number]) [facility] ([facility]) [address] [place] [address] 14927 Hemoglobin (Bld) [Mass/Vol] 13.8 g/dL Normal 13.5-17.5 [facility] Comment on above: Performed By: #### 5 7021-8 #### CALEB CASTELLANOS L ([id number]) [facility] ([facility]) [address] [place] [address]26[address] Immature granulocytes (Bld) [#/Vol] 0.03 x10*3/uL Normal 0.00-0.70 [facility] Comment on above: Performed By: #### 5 7021-8 #### CALEB Harrell ([id number]) [facility] ([facility]) [address] [place] [address] 14060 Immature granulocytes/100 WBC (Bld) 0.4 % Normal 0.0-0.9 [facility] Comment on above: Result Comment: Nelia ture Granulocyte Count (IG) includes promyelocytes, myelocytes and metamyelocytes but does not include bands. Percent differential counts (%) should be interpreted in the context of the absolute cell counts (cells/UL). Performed By: #### 5 7021-8 #### CALEB aHrrell ([id number]) [facility] ([facility]) [address] [place] [address] Lymphocytes (Bld) [#/Vol] 2.66 x10*3/uL Normal 1.20-4.80 [facility] Comment on above: Performed By: #### 5 7021-8 #### CALEB Harrell ([id number]) [facility] ([facility]) [address] [place] [address] 92706 Lymphocytes/100 WBC (Bld) 31.0 % Normal 13.0-44.0 [facility] Comment on above: Performed By: #### 5 7021-8 #### CALEB Harrell ([id number]) [facility] ([facility]) [address] [place] [address] 58055 MCH (RBC) [Entitic mass] 29.3 pg Normal 26.0-34.0 [facility] Comment on above: Performed By: #### 5 7021-8 #### CALEB Harrell ([id number]) [facility] ([facility]) [address] [place] [address] 78283 MCHC (RBC) [Mass/Vol] 31.5 g/dL Low 32.0-36.0 [facility] Comment on above: Performed By: #### 5 7021-8 #### CALEB CASTELLANOS L ([id number]) [facility] ([facility]) [address] [place] [address] 48523 MCV (RBC) [Entitic vol] 93 fL Normal 80-100 [facility] Comment on above: Performed By: #### 5 7021-8 #### CALEB Harrell ([id number]) [facility] ([facility]) [address] [place] [address], [place] [address] Monocytes (Bld) [#/Vol] 0.61 x10*3/uL Normal 0.10-1.00 [facility] Comment on above: Performed By: #### 5 7021-8 #### CALEB BLEDSOEMOTZER L ([id number]) [facility] ([facility]) [address] [place] [address] Monocytes/100 WBC (Bld) 7.1 % Normal 2.0-10.0 [facility] Comment on above: Performed By: #### 5 7021-8 #### CALEB BLEDSOEMOLIANETER L ([id number]) [facility] ([facility]) [address] [place] [address] Neutrophils (Bld) [#/Vol] 5.17 x10*3/uL Normal 1.20-7.70 [facility] Comment on above: Result Comment: Perc ent differential counts (%) should be interpreted in the context of the absolute cell counts (cells/uL). Performed By: #### 5 7021-8 #### CALEB SERRATZER L ([id number]) [facility] ([facility]) [address] [place] [address] Neutrophils/100 WBC (Bld) 60.3 % Normal 40.0-80.0 [facility] Comment on above: Performed By: #### 5 7021-8 #### CALEB BLEDSOEMOLIANETER L ([id number]) [facility] ([facility]) [address] [place] [address] Nucleated RBC/100 WBC (Bld) [Ratio] 0.0 /100 WBCs Normal 0.0-0.0 [facility] Comment on above: Performed By: #### 5 7021-8 #### CALEB BLEDSOEMOTZER L ([id number]) [facility] ([facility]) [address] [place] [address]75 Platelets (Bld) [#/Vol] 365 x10*3/uL Normal 150-450 [facility] Comment on above: Performed By: #### 5 7021-8 #### CALEB BLEDSOEMOKISHAN L ([id number]) [facility] ([facility]) [address] [place] [address] RBC (Bld) [#/Vol] 4.71 x10*6/uL Normal 4.50-5.[address] [facility] Comment on above: Performed By: #### 5 7021-8 #### CALEB Harrell ([id number]) [facility] ([facility]) [address] [place] [address] WBC (Bld) [#/Vol] 8.6 x10*3/uL Normal 4.4-11.3 [facility] Comment on above: Performed By: #### 5 7021-8 #### CALEB Harrell ([id number]) [facility] ([facility]) [address] [place] [address] Laboratory - Hematology and Cell countson 03-28-2023 HbA1c (Bld) [Mass fraction] 5.7 % Normal 4.6 - 7.1 % [facility] [employer] Laboratory - Chemistry and C hemistry - challengeon 03-14-2023 Albumin [Mass/Vol] 4.9 g/dL Normal 3.6 - 5.1 g/dL [employer] Albumin/Globulin [Mass ratio] 1.9 {ratio} Normal 1.0 - 2.5 [employer] ALP [Catalytic activity/Vol] 24 U/L Abnormal 36 - 130 U/L [employer] ALT [Catalytic activity/Vol] 17 U/L Normal 9 - 46 U/L [employer] AST [Catalytic activity/Vol] 13 U/L Normal 10 - 40 U/L [employer] Bilirubin [Mass/Vol] 0.5 mg/dL Normal 0.2 - 1 .2 mg/dL [facility] [employer] Calcium [Mass/Vol] 9.7 mg/dL Normal 8.6 - 10. 3 mg/dL [facility], [facility]. Chloride [Moles/Vol] 103 mmol/L Normal 98 - 11 0 mmol/L [facility], [facility]. Cholesterol [Mass/Vol] 139 mg/dL Normal [facility].; [facility], [facility]. Cholesterol in HDL [Mass/Vol] 53 mg/dL Normal [facility].; [facility], [facility] Cholesterol in LDL [Mass/Vol] 66 mg/dL Normal [facility].; [facility], [facility]. CO2 [Moles/Vol] 29 mmol/L Normal 20 - 32 mmol/L [facility].; [facility], [facility]. Creatinine [Mass/Vol] 0.78 mg/dL Normal 0.60 - 1.29 mg/dL [facility].; [facility], [facility]. GFR/1.73 sq M.predicted among non-blacks MDRD (S/P/Bld) [Vol rate/Area] 111 mL/min/{1.73_m2} Normal [facility].; [facility], [facility]. Glucose [Mass/Vol] 105 mg/dL Abnormal 65 - 99 mg/dL [facility].; [facility], [facility]. Potassium [Moles/Vol] 4.5 mmol/L Normal 3.5 - 5.3 mmol/L [facility].; [facility], [facility]. Protein [Mass/Vol] 7.5 g/dL Normal 6.1 - 8.1 g/dL [facility], [facility].; [facility], [facility]. Sodium [Moles/Vol] 141 mmol/L Normal 135 - 146 mmol/L [facility], [facility].; [facility], [facility]. Triglyceride [Mass/Vol] 118 mg/dL Normal [facility] [employer] [facility].; [facility], [facility]. Urea nitrogen [Mass/Vol] 15 mg/dL Normal 7 - 25 mg/dL [facility], [facility].; [facility], [facility] No Panel Informationon 03-14 BUN/CREATININE RATIO SEE NOTE: Normal 6 - 22 [facility].; [facility], [facility] CHOL/HDLC RATIO 2.6 Normal [facility]; [facility] GLOBULIN 2.6 Normal 1.9 - 3.7 [facility]; [facility] [employer] [facility] NON HDL CHOLESTEROL 86 Normal [facility]; [facility] [employer] [employer] [facility] Laboratory - Chemistry and C hemistry - challengeon 01-30-2022 Albumin [Mass/Vol] 4.9 g/dL Normal 3.6 - 5.1 g/dL [facility]; [facility], [facility] Albumin/Globulin [Mass ratio] 1.5 {ratio} Normal 1.0 - 2.5 [facility]; [facility] [employer] [facility] ALP [Catalytic activity/Vol] 28 U/L Abnormal 36 - 130 U/L [facility]; [facility], [facility] ALT [Catalytic activity/Vol] 22 U/L Normal 9 - 46 U/L [facility]; [facility] [employer] [facility] AST [Catalytic activity/Vol] 16 U/L Normal 10 - 40 U/L [facility]; [facility] [employer] [facility] Bilirubin [Mass/Vol] 0.6 mg/dL Normal 0.2 - 1 .2 mg/dL [facility]; [facility], [facility]. Calcium [Mass/Vol] 10.1 mg/dL Normal 8.6 - 10. 3 mg/dL [facility]; [facility], [facility] Chloride [Moles/Vol] 99 mmol/L Normal 98 - 11 0 mmol/L [facility]; [facility] [employer] [facility] Cholesterol [Mass/Vol] 238 mg/dL Abnormal [facility]; [facility] [employer] [facility] Cholesterol in HDL [Mass/Vol] 49 mg/dL Normal [facility]; [facility] [employer] [facility] Cholesterol in LDL [Mass/Vol] 144 mg/dL Abnormal [facility]; [facility], [facility] CO2 [Moles/Vol] 23 mmol/L Normal 20 - 32 mmol/L [facility]; [facility] [employer] [facility] Creatinine [Mass/Vol] 0.82 mg/dL Normal 0.60 - 1.29 mg/dL [facility].; [facility] [employer] [facility]. GFR/1.73 sq M.predicted among non-blacks MDRD (S/P/Bld) [Vol rate/Area] 110 mL/min/{1.73_m2} Normal [facility].; [facility], [facility] Glucose [Mass/Vol] 89 mg/dL Normal 65 - 99 mg/dL [facility].; [facility], [facility] Potassium [Moles/Vol] 4.2 mmol/L Normal 3.5 - 5.3 mmol/L [facility]; [facility], [facility] Protein [Mass/Vol] 8.1 g/dL Normal 6.1 - 8.1 g/dL [facility]; [facility], [facility] Sodium [Moles/Vol] 136 mmol/L Normal 135 - 146 mmol/L [facility].; [facility], [facility] Triglyceride [Mass/Vol] 316 mg/dL Abnormal [facility]; [facility] [employer] [facility] Urea nitrogen [Mass/Vol] 14 mg/dL Normal 7 - 25 mg/dL [facility]; [facility] [employer] [facility] No Panel Informationon 01-30 BUN/CREATININE RATIO NOT APPLICABLE Normal 6 - 22 [facility]; [facility] [facility] [employer] [facility]. CHOL/HDLC RATIO 4.9 Normal [facility]; [facility] [employer] [facility] GLOBULIN 3.2 Normal 1.9 - 3.7 [facility]; [facility] [employer] [facility] NON HDL CHOLESTEROL 189 Abnormal [facility].; [facility] [employer] [facility]. CV VENOUS LEG LTon 2 CV VENOUS LEG LT [place] [address] Patient: VON STEWART Phone#: : 1975 Age: 46 Gender: M Pt. Type: Out Account: [id number] Location: [facility] Ordering: TIAGO ANDREWS Exam Date: 10/18/2021/14:49 Family Phys: PANKAJ Nettles YASSINE Charge Code: [id number] Physician: [place] Order #: [id number] DLP Dose#: PROCEDURE: VENOUS DOPPLER LT LEG COMPARISON: None. INDICATIONS: Pain and swelling TECHNIQUE: Color duplex Doppler ultrasound evaluation analysis was performed in the usual manner. PRECISION MILLWRIGHT: GLEN RISK FACTORS FOR VENOUS DISEASE: LE trauma/injury Knee injury one month ago Other Pain and swelling EXAMINATION: RIGHT +Present -Reduced o Absent LEFT SPONT PHASIC AUG REFLUX COMP SPONT PHASIC AUG REFLUX COMP + + + o + CFV + + + o + SFJ + FV (prox) + + + o + FV (mid) + FV (dist) + POP V + + + o + T/P TRUNK + + + o + PTV + + + o + PERONEAL V + + + o + GSV + GASTROC SOLEAL V PRECISION MILLWRIGHT'S NOTES: Continued Report - Page 2 of 2 Patient: VON STEWART Phone#: : 1975 Age: 46 Gender: M Pt. Type: Out Account: [id number] Location: 052 Ordering: [facility] Exam Date: 10/18/2021/14:49 Family Phys: PANKAJ DennyEmily YASSINE Charge Code: [id number] Physician: [place] Order #: [id number] DLP Dose#: FINDINGS: THROMBI: None visible. COMPRESSIBILITY: Normal. OTHER: Negative. CONCLUSION: 1. There is no evidence of superficial or deep vein thrombus. Dictated by: Doris Leyva MD on 10/18/2021 at 15:24 Approved by: Doris Leyva MD on 10/18/2021 at 15:25 Normal [facility] EMERGENCY REPORTon 2 EMERGENCY REPORT [facility] EMERGENCY ROOM REPORT NAME ACCOUNT SEX AGE ADMIT DISCHARGE PT MED. RECORD# NUMBER DATE DATE TYPE VON STEWART [id number] M 46 09/19/21 09/19/21 3 N [id number] ROOM: ER DATE OF : 1975 DICTATING PHYSICIAN: Riaz Kaiser HISTORY OF PRESENT ILLNESS: The patient is a 46-year-old male who presents with left knee pain. He states he was getting out of his truck when he twisted his left knee. He heard a popping noise. He has had sharp pain since that time. It is worse with movement. He denies any numbness or tingling. He denies any fall or head injury. PAST MEDICAL HISTORY: None. PAST SURGICAL HISTORY: Noncontributory. SOCIAL HISTORY: The patient denies any drugs, alcohol, or tobacco abuse. REVIEW OF SYSTEMS: Ten systems reviewed and otherwise negative unless stated above. PHYSICAL EXAMINATION: GENERAL: The patient appears well and nontoxic. HEENT: Head: Normocephalic without signs of trauma. NECK: Trachea is midline. Supple. MUSCULOSKELETAL: Left knee extensor mechanism intact. Full range of motion. Tenderness to palpation to the anterior superior aspect. Joint effusion. No overlying skin changes. Strong and palpable popliteal, DP, and PT pulses. NEUROLOGIC: Sensation grossly intact to the left lower extremity. SKIN: Clear. PSYCHIATRIC: Mood and affect normal. DIAGNOSTIC DATA: X-ray shows a joint effusion without evidence of acute fracture. EMERGENCY DEPARTMENT COURSE AND TREATMENT: The patient appears well and nontoxic. He was given crutches, knee immobilizer, and subcutaneous morphine. X-ray was negative. DIAGNOSIS: Left knee injury. PLAN/DISPOSITION: He was given orthopedic and Occupational Healthy followup. He was stable at the time of discharge. Dictated By: Riaz Kaiser DO 09/19/21 16:56 JOB #: [id number] Page 1 of 2 [facility] Emergency Room Report [facility] : 1975 Transcribed By: am 09/20/21 07:52 Electronically signed by: E-SIGN: Riaz Kaiser D.O. 09/25/21 10:28 Page 2 of 2 [facility] Emergency Room Report Normal [facility] KNEE COMPLETE LT MIN 4 VIEWS on 09-19-2021 KNEE COMPLETE LT MIN 4 VIEWS [place] [address] Patient: TERRYVON León. Phone#: : [phone] Age: 46 Gender: M Pt. Type: ER Account: [id number] Location: [facility] Ordering: RIAZ KAISER Exam Date: 09/19/2021/16:05 Family Phys: PANKAJ SALGADO Charge Code: 845668 Physician: [place] Order #: [id number] [facility] Dose#: PROCEDURE: X-RAY KNEE LT COMPLETE 4 VIEWS COMPARISON: None. INDICATIONS: Trauma. FINDINGS: BONES: Moderately severe degenerative changes are present. There is narrowing of the medial compartment. Hypertrophic spurring is present at the medial femoral condyle and tibial plateau. SOFT TISSUES: Negative. No visible soft tissue swelling. EFFUSION: Moderate suprapatellar joint effusion is present. OTHER: Negative. CONCLUSION: 1. 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 There is no evidence of acute abnormality. Joint effusion is present. Dictated by: Doris Leyva MD on 09/19/2021 at 16:10 Approved by: Doris Leyva MD on 09/19/2021 at 16:11 Normal [facility] Laboratory - Chemistry and C hemistry - challengeon 12-10-2020 Calcium [Mass/Vol] 9.7 mg/dL Normal 8.6 - 10. 3 mg/dL [employer], [employer].; [employer]. Chloride [Moles/Vol] 100 mmol/L Normal 98 - 11 0 mmol/L [employer], [employer].; [employer], [employer]. Cholesterol [Mass/Vol] 276 mg/dL Abnormal [employer].; [employer], [employer]. Cholesterol in HDL [Mass/Vol] 47 mg/dL Normal [employer], [employer].; [employer], [employer]. Cholesterol in LDL [Mass/Vol] 162 mg/dL Abnormal [employer].; [employer], [employer]. CO2 [Moles/Vol] 26 mmol/L Normal 20 - 32 mmol/L [employer].; [employer], [employer]. Creatinine [Mass/Vol] 0.77 mg/dL Normal 0.60 - 1.35 mg/dL [employer], [employer].; [employer], [employer]. GFR/1.73 sq M.predicted among blacks MDRD (S/P/Bld) [Vol rate/Area] 127 mL/min/{1.73_m2} Normal [employer], [employer].; [employer], [facility]. Glucose [Mass/Vol] 89 mg/dL Normal 65 - 99 mg/dL [facility].; [facility], [facility] Potassium [Moles/Vol] 4.0 mmol/L Normal 3.5 - 5.3 mmol/L [facility].; [facility], [facility] Sodium [Moles/Vol] 137 mmol/L Normal 135 - 146 mmol/L [facility], [facility].; [facility], [facility] Triglyceride [Mass/Vol] 397 mg/dL Abnormal [facility]; [facility], [facility] Urea nitrogen [Mass/Vol] 14 mg/dL Normal 7 - 25 mg/dL [facility].; [facility], [facility] No Panel Informationon 12-10 BUN/CREATININE RATIO NOT APPLICABLE Normal 6 - 22 [facility]; [facility], [facility] CHOL/HDLC RATIO 5.9 Abnormal [facility]; [facility], [facility] eGFR NON-AFR. SWAZI 110 Normal [facility]; [employer], [facility] NON HDL CHOLESTEROL 229 Abnormal [facility].; [facility], [facility] Laboratory - Chemistry and C hemistry - challengeon 12-08-2019 Calcium [Mass/Vol] 10.5 mg/dL Abnormal 8.6 - 10. 3 mg/dL [facility].; [facility], [facility]. Chloride [Moles/Vol] 101 mmol/L Normal 98 - 11 0 mmol/L [facility].; [facility], [facility]. Cholesterol [Mass/Vol] 273 mg/dL Abnormal [facility] [employer] [facility].; [facility], [facility]. Cholesterol in HDL [Mass/Vol] 53 mg/dL Normal [facility].; [facility], [facility]. Cholesterol in LDL [Mass/Vol] 182 mg/dL Abnormal [facility] [employer] [facility].; [facility], [facility]. CO2 [Moles/Vol] 21 mmol/L Normal 20 - 32 mmol/L [facility], [facility].; [facility], [facility] Creatinine [Mass/Vol] 0.79 mg/dL Normal 0.60 - 1.35 mg/dL [facility] [employer] [facility]; [employer]. GFR/1.73 sq M.predicted among blacks MDRD (S/P/Bld) [Vol rate/Area] 127 mL/min/{1.73_m2} Normal [facility] [employer] [facility].; [facility], [employer]. Glucose [Mass/Vol] 88 mg/dL Normal 65 - 99 mg/dL [facility] [employer] [facility].; [employer], [employer]. Sodium [Moles/Vol] 137 mmol/L Normal 135 - 146 mmol/L [facility] [employer] [facility].; [employer], [employer]. Triglyceride [Mass/Vol] 203 mg/dL Abnormal [facility] [employer] [facility].; [employer], [employer]. Urea nitrogen [Mass/Vol] 13 mg/dL Normal 7 - 25 mg/dL [facility] [employer] [facility].; [employer], [employer]. No Panel Informationon 12-07 BUN/CREATININE RATIO NOT APPLICABLE Normal 6 - 22 [facility] [employer] [facility].; [employer]. CHOL/HDLC RATIO 5.2 Abnormal [facility] [employer] [facility].; [employer], [employer]. eGFR NON-AFR. SWAZI 109 Normal [facility] [employer] [facility].; [employer], [employer]. NON HDL CHOLESTEROL 220 Abnormal [facility] [employer] [facility].; [employer] Normal [facility] [employer] [facility].; [employer]. Laboratory - Chemistry and C hemistry - challengeon 01-05-2018 Calcium [Mass/Vol] 9.5 mg/dL Normal 8.6 - 10. 3 mg/dL [facility] [employer] [facility].; [employer]. Chloride [Moles/Vol] 101 mmol/L Normal 98 - 11 0 mmol/L [facility] [employer] [facility].; [employer], [employer]. Cholesterol [Mass/Vol] 196 mg/dL Normal [facility] [employer] [facility].; [employer], [employer]. Cholesterol in HDL [Mass/Vol] 42 mg/dL Normal [employer].; [employer] Cholesterol in LDL [Mass/Vol] 117 mg/dL Abnormal 0 - 100 mg/dL [facility] System[facility]ai[facility]om [facility].; [employer], [employer]. Cholesterol non HDL [Mass/Vol] 155 mg/dL Abnormal [facility] [employer] [facility].; [facility], [facility]. Cholesterol.total/Cho lesterol in HDL [Mass ratio] 4.7 {ratio} Normal [facility]; [facility], [facility] CO2 [Moles/Vol] 28 mmol/L Normal 20 - 31 mmol/L [facility].; [facility], [facility]. Creatinine [Mass/Vol] 0.86 mg/dL Normal 0.60 - 1.35 mg/dL [facility].; [facility], [facility]. GFR/1.73 sq M.predicted among blacks MDRD (S/P/Bld) [Vol rate/Area] 124 {ML/MIN/1.73M2} Normal [facility], [facility]. GFR/1.73 sq M.predicted MDRD (S/P/Bld) [Vol rate/Area] 107 {ML/MIN/1.73M2} Normal [facility], [facility].; [facility], [facility]. Glucose [Mass/Vol] 103 mg/dL Abnormal 65 - 99 mg/dL [facility].; [facility], [facility]. Potassium [Moles/Vol] 4.5 mmol/L Normal 3.5 - 5.3 mmol/L [facility] [employer] [facility].; [facility], [facility]. Sodium [Moles/Vol] 138 mmol/L Normal 135 - 146 mmol/L [facility], [facility].; [facility], [facility]. Triglyceride [Mass/Vol] 260 mg/dL Abnormal [facility] [employer] [facility].; [facility], [facility]. Urea nitrogen [Mass/Vol] 12 mg/dL Normal 7 - 25 mg/dL [facility] [employer] [facility].; [facility], [facility]. Urea nitrogen/Creatinine [Mass ratio] 13.5 mg/mg Normal 6 - 22 [facility] [employer] [facility]; [facility], [facility]. Laboratory - Chemistry and C hemistry - challengeon 12-16-2016 Anion gap [Moles/Vol] 14 mmol/L Normal 10 - 2 0 mmol/L [facility] [employer] [facility].; [employer], [facility] Basic metabolic 2000 panel BMP with eGFR Normal [facility] System[facility] [employer] [facility].; [facility], Inc[employer] Calcium [Mass/Vol] 9.5 mg/dL Normal 8.6 - 10. 2 mg/dL [facility], [facility].; [facility], [facility]. Chloride [Moles/Vol] 101 mmol/L Normal 98 - 10 7 mmol/L [facility], [facility].; [facility], [facility]. Cholesterol [Mass/Vol] 258 mg/dL Abnormal 0 - 200 mg/dL [facility], [facility].; [facility], [facility]. Cholesterol in HDL [Mass or moles/Vol] 45 mg/dL Normal 40 - 60 mg/dL [facility], [facility].; [facility], [facility]. Cholesterol in LDL [Mass/Vol] 139 mg/dL Abnormal 0 - 129 mg/dL [facility] [employer] [facility].; [facility], [facility]. Cholesterol.total/Cho lesterol in HDL [Mass ratio] 5.7 {ratio} Abnormal 0.0 - 5.0 [facility] [employer] [facility].; [facility], [facility]. CO2 [Moles/Vol] 27.4 mmol/L Normal 21.0 - 31.0 mmol/L [facility] [employer] [facility].; [facility], [facility]. Creatinine [Mass/Vol] 0.8 mg/dL Normal 0.7 - 1.3 mg/dL [facility], [facility].; [facility], [facility]. GFR/1.73 sq M.predicted among blacks MDRD (S/P/Bld) [Vol rate/Area] mL/min/{1.73_m2} Normal 60 - 999 {ML/MINUTE} [facility], [facility].; [facility], [facility]. GFR/1.73 sq M.predicted MDRD (S/P/Bld) [Vol rate/Area] mL/min/{1.73_m2} Normal 60 - 999 {ML/MINUTE} [facility], [facility].; [facility], Inc[employer] Glucose [Mass/Vol] 91 mg/dL Normal 74 - 106 mg/dL [facility], [facility].; [employer], [facility]. Lipid 1996 panel LIPID PROFILE Normal [facility], [facility].; [employer] Potassium [Moles/Vol] 3.9 mmol/L Normal 3.5 - 5.1 mmol/L [facility] System[facility] [employer] [facility].; [employer]. Sodium [Moles/Vol] 138 mmol/L Normal 136 - 145 mmol/L [employer].; [employer]. Triglyceride [Mass/Vol] 371 mg/dL Abnormal 0 - 150 mg/dL [employer].; [employer]. Urea nitrogen [Mass/Vol] 13 mg/dL Normal 6 - 20 mg/dL [employer].; [employer]. No Panel Informationon 12-16 AGE 41 {years} Normal [facility] [employer].; [employer]. Laboratory - Chemistry and C hemistry - challengeon 08-04-2015 Bilirubin Ql (U) Negative Normal [facility].; [employer]. Ketones Ql (U) Negative Normal [facility] [employer].; [employer]. pH (U) 6.0 [pH] Normal [employer].; [employer]. Specific gravity (U) [Rel density] 1.020 Normal [employer].; [employer]. Urobilinogen Qn (U) 0.2 mg/dL Normal [facility] [employer].; [employer]. Laboratory - Hematology and Cell countson 08-04-2015 Hemoglobin Ql (U) Negative Normal [employer].; [employer]. Laboratory - Specimen inform ationon 08-04-2015 Appearance (U) clear Normal [facility] [employer].; [employer]. Color (U) yellow Normal [employer].; [employer]. Laboratory - Urinalysison Glucose Test strip (U) [Mass/Vol] Negative Normal [employer].; [employer]. Leukocyte esterase Test strip Ql (U) Negative Normal [employer].; [employer], [employer]. Protein Ql (U) Negative Normal [facility] [employer].; [employer]. Laboratory - UrinalysisOrder ed By: Karen Alexander on 08-04-2015 Nitrite Ql (U) Negative Normal [facility].; [facility], [facility] Laboratory - Chemistry and C hemistry - challengeon 02-24-2010 Urate [Mass/Vol] 7.6 mg/dL Normal 4.0 - 8.0 mg/dL [facility]; [facility], [facility] Vital Signs Date Time Vital Sign Value Performing Clinician Facility 08-20-2024 14:33-0400 Body height 196.22 cm Wendy Harrison LPN [facility].; [facility] 08-20-2024 14:33-0400 Body mass index (BMI) [Ratio] 37.47 kg/m2 Wendy Harrison LPN [facility].; [facility] 08-20-2024 14:33-0400 Body surface area Derived from formula 2.73 m2 Wendy Harrison LPN [facility].; [facility] 08-20-2024 14:33-0400 Body temperature 98.4 [degF] Wendy Harrison LPN [facility].; [facility], [facility]. Comment on above: Method: Tympanic 08-20-2024 14:33-0400 Body weight 144.24 kg Wendy Harrison LPN [facility].; [facility] 08-20-2024 14:33-0400 Diastolic blood pressure 84 mm[Hg] Wendy Harrison LPN [facility].; [facility], [facility]. Comment on above: Patient Position: Sitting; Cuff Location : Left Arm; Cuff Size: Standard 08-20-2024 14:33-0400 Heart rate 100 /min Wendy Harrison LPN [facility].; [facility] [employer] [facility]. Comment on above: Pattern: Regular 08-20-2024 14:33-0400 Systolic blood pressure 126 mm[Hg] Wendy Harrison LPN [facility].; [facility], [facility]. Comment on above: Patient Position: Sitting; Cuff Location : Left Arm; Cuff Size: Standard 08-15-2024 00:25-0400 Diastolic Blood Pressure Non-Invasive 70 mm[Hg] PARTICIA THAYER MD [facility] 08-15-2024 00:25-0400 Heart rate 95 /min PATRICIA THAYER MD [facility] 08-15-2024 00:25-0400 Respiratory rate 22 /min PATRICIA THAYER MD [address] [place] [address] 08-15-2024 00:25-0400 Systolic Blood Pressure Non-Invasive 151 mm[Hg] PATRICIA THAYER MD [address] [place] [address] 08-14-2024 23:00-0400 Diastolic Blood Pressure Non-Invasive 78 mm[Hg] PATRICIA THAYER MD [address] [place] [address] 08-14-2024 23:00-0400 Heart rate 107 /min PATRICIA THAYER MD [address] 08-14-2024 23:00-0400 Respiratory rate 20 /min PATRICIA THAYER MD [address] [place] [address] 08-14-2024 21:52-0400 Diastolic Blood Pressure Non-Invasive 93 mm[Hg] PATRICIA THAYER MD [facility] 08-14-2024 21:52-0400 Systolic Blood Pressure Non-Invasive 172 mm[Hg] PATRICIA THAYER MD [facility] 08-14-2024 21:00-0400 Body temperature 98.42 [degF] PATRICIA THAYER MD [address] [place] [address] 08-14-2024 21:00-0400 Heart rate 103 /min PATRICIA THAYER MD [facility] 05-09-2024 14:33-0500 Body height 196.22 cm Wendy Harrison LPN [facility], [facility].; [facility] 05-09-2024 14:33-0500 Body mass index (BMI) [Ratio] 38.05 kg/m2 Wendy Harrison LPN [facility].; [facility] 05-09-2024 14:33-0500 Body surface area Derived from formula 2.75 m2 Wendy Harrison LPN [facility].; [facility]. 05-09-2024 14:33-0500 Body weight 146.51 kg Wendy Harrison LPN [facility].; [facility], [facility]. 05-09-2024 14:33-0500 Diastolic blood pressure 87 mm[Hg] Wendy Harrison LPN [facility].; [facility], [employer]. Comment on above: Patient Position: Sitting; Cuff Location : Left Arm; Cuff Size: Standard 05-09-2024 14:33-0500 Heart rate 116 /min Wendy Harrison LPN [facility].; [facility], [employer]. Comment on above: Pattern: Regular 05-09-2024 14:33-0500 Systolic blood pressure 133 mm[Hg] Wendy Harrison LPN [facility].; [facility], [employer]. Comment on above: Patient Position: Sitting; Cuff Location : Left Arm; Cuff Size: Standard 04-04-2023 10:02-0400 Diastolic blood pressure 64 mm[Hg] Francisco Echavarria MD Work Phone: [facility].; [place] [facility]. Comment on above: Patient Position: Sitting; Cuff Location : Left Arm; Cuff Size: Standard 04-04-2023 10:02-0400 Systolic blood pressure 101 mm[Hg] Francisco Echavarria MD Work Phone: [facility].; [place] [facility]. Comment on above: Patient Position: Sitting; Cuff Location : Left Arm; Cuff Size: Standard 03-28-2023 14:15-0400 Body height 196.22 cm [facility] Work Phone: [facility].; [facility]. 03-28-2023 14:15-0400 Body mass index (BMI) [Ratio] 35.34 kg/m2 [facility] Work Phone: [facility].; [place] [facility] [employer]. 03-28-2023 14:150400 Body surface area Derived from formula 2.66 m2 Ceci Stephanie EMPLOYMENT ASSISTANT Work Phone: [employer].; [employer]. 03-28-2023 14:15-0400 Body weight 136.08 kg Ceci Silvestrey EMPLOYMENT ASSISTANT Work Phone: [employer].; [employer]. 03-28-2023 14:15-0400 Diastolic blood pressure 87 mm[Hg] Ceci Silvestrey EMPLOYMENT ASSISTANT Work Phone: [employer].; [employer]. Comment on above: Patient Position: Sitting; Cuff Location : Left Arm; Cuff Size: Thigh 03-28-2023 14:15-0400 Heart rate 103 /min Ceci Silvestrey EMPLOYMENT ASSISTANT Work Phone: [employer].; [employer]. Comment on above: Pattern: Regular 03-28-2023 14:15-0400 Systolic blood pressure 126 mm[Hg] Ceci Silvestrey EMPLOYMENT ASSISTANT Work Phone: [employer].; [employer]. Comment on above: Patient Position: Sitting; Cuff Location : Left Arm; Cuff Size: Thigh 07-12-2022 14:02-0500 Body height 196.22 cm Ceci Brown EMPLOYMENT ASSISTANT Work Phone: [employer].; [employer]. 07-12-2022 14:02-0500 Body mass index (BMI) [Ratio] 38.41 kg/m2 Ceci Silvestrey EMPLOYMENT ASSISTANT Work Phone: [employer].; [employer]. 07-12-2022 14:02-0500 Body surface area Derived from formula 2.76 m2 Ceci Silvestrey EMPLOYMENT ASSISTANT Work Phone: [employer].; [employer]. 07-12-2022 14:02-0500 Body weight 147.87 kg Ceci Silvestrey EMPLOYMENT ASSISTANT Work Phone: [employer].; [employer]. 07-12-2022 14:02-0500 Diastolic blood pressure 86 mm[Hg] Ceci Stephanie EMPLOYMENT ASSISTANT Work Phone: [facility]; [facility] Comment on above: Patient Position: Sitting; Cuff Location : Left Arm; Cuff Size: Thigh 07-12-2022 14:02-0500 Heart rate 70 /min Ceci Stephanie EMPLOYMENT ASSISTANT Work Phone: [employer]; [employer] Comment on above: Pattern: Regular 07-12-2022 14:02-0500 Systolic blood pressure 128 mm[Hg] Ceci Stephanie EMPLOYMENT ASSISTANT Work Phone: [employer]; [employer] Comment on above: Patient Position: Sitting; Cuff Location : Left Arm; Cuff Size: Thigh 05-16-2022 09:00-0500 Body temperature 98.4 [degF] PA-C [employer] Work Phone: [facility] Work Phone: 05-16-2022 09:00-0500 Diastolic blood pressure 74 mm[Hg] PA-C [employer] Work Phone: [facility] Work Phone: 05-16-2022 09:00-0500 Heart rate 99 /min PA-C [employer] Work Phone: [facility] Work Phone: 05-16-2022 09:00-0500 Respiratory rate 16 /min PA-C Cheyanne Hatch PA Work Phone: [facility] Work Phone: 05-16-2022 09:00-0500 SaO2% (BldA) [Mass fraction] 97 % PA-C Cheyanne Oark PA Work Phone: [facility] Work Phone: 05-16-2022 09:00-0500 Systolic blood pressure 121 mm[Hg] PA-C [employer] Work Phone: [facility] Work Phone: 05-16-2022 06:15-0500 Body height 200.66 cm PA-C [employer] Work Phone: [facility] Work Phone: 05-16-2022 06:15-0500 Body mass index (BMI) [Ratio] 36.1 kg/m2 PA-C [employer] Work Phone: [facility] Work Phone: 05-16-2022 06:15-0500 Body weight 145.3 kg PA-C [employer] Work Phone: [facility] Work Phone: 02-13-2022 11:24-0400 Body mass index (BMI) [Ratio] 37.5 kg/m2 PA-C [employer] Work Phone: [facility] Work Phone: 02-13-2022 11:24-0400 Body weight 147.41 kg PA-C [employer] Work Phone: [facility] Work Phone: 01-30-2022 08:08-0400 Body height 196.22 cm Yuki Rdz [facility], [facility].; [facility], [facility]. 01-30-2022 08:08-0400 Body mass index (BMI) [Ratio] 37.7 kg/m2 Yuki Rdz [facility], [facility].; [facility], [facility]. 01-30-2022 08:08-0400 Body surface area Derived from formula 2.74 m2 Yuki Rdz [facility], [facility].; [facility], [facility]. 01-30-2022 08:08-0400 Body weight 145.15 kg Yuki Rdz [facility], [facility].; [facility], [facility]. 01-30-2022 08:08-0400 Diastolic blood pressure 73 mm[Hg] Yuki Rdz [facility], [facility].; [employer]. Comment on above: Patient Position: Sitting; Cuff Location : Left Arm; Cuff Size: Large 01-30-2022 08:08-0400 Heart rate 101 /min Yuki Rdz [facility].; [employer]. Comment on above: Pattern: Regular 01-30-2022 08:08-0400 Systolic blood pressure 111 mm[Hg] [facility]uki [facility]dz [facility] [employer]. Comment on above: Patient Position: Sitting; Cuff Location : Left Arm; Cuff Size: Large 12-10-2020 14:57-0400 Body height 196.22 cm Ceci Stephanie EMPLOYMENT ASSISTANT Work Phone: [employer]. 12-10-2020 14:57-0400 Body mass index (BMI) [Ratio] 35.58 kg/m2 Ceci Stephanie EMPLOYMENT ASSISTANT Work Phone: [employer]. 12-10-2020 14:57-0400 Body surface area Derived from formula 2.67 m2 Ceci Stephanie EMPLOYMENT ASSISTANT Work Phone: [employer]; [employer]. 12-10-2020 14:57-0400 Body weight 136.99 kg Ceci Stephanie EMPLOYMENT ASSISTANT Work Phone: [employer]. 12-10-2020 14:57-0400 Diastolic blood pressure 88 mm[Hg] Ceci Stephanie EMPLOYMENT ASSISTANT Work Phone: [employer]. Comment on above: Patient Position: Sitting; Cuff Location : Left Arm; Cuff Size: Large 12-10-2020 14:57-0400 Heart rate 94 /min Ceci Stephanie EMPLOYMENT ASSISTANT Work Phone: [employer].; [employer]. Comment on above: Pattern: Regular 12-10-2020 14:57-0400 Systolic blood pressure 133 mm[Hg] Ceci Stephanie EMPLOYMENT ASSISTANT Work Phone: [employer].; [employer]. Comment on above: Patient Position: Sitting; Cuff Location : Left Arm; Cuff Size: Large 12-08-2019 14:54-0400 Body height 196.22 cm Ceci Brown EMPLOYMENT ASSISTANT Work Phone: [employer].; [employer]. 12-08-2019 14:54-0400 Body mass index (BMI) [Ratio] 36.29 kg/m2 Ceci Silvestrey EMPLOYMENT ASSISTANT Work Phone: [employer].; [employer]. 12-08-2019 14:54-0400 Body surface area Derived from formula 2.69 m2 Ceci Brown EMPLOYMENT ASSISTANT Work Phone: [employer].; [employer]. 12-08-2019 14:54-0400 Body weight 139.71 kg Ceci Brown EMPLOYMENT ASSISTANT Work Phone: [employer].; [employer]. 12-08-2019 14:54-0400 Diastolic blood pressure 97 mm[Hg] Ceci Silvestrey EMPLOYMENT ASSISTANT Work Phone: [employer]; [employer]. Comment on above: Patient Position: Sitting; Cuff Location : Left Arm; Cuff Size: Large 12-08-2019 14:54-0400 Heart rate 108 /min Ceci Silvestrey EMPLOYMENT ASSISTANT Work Phone: [employer]; [employer]. Comment on above: Pattern: Regular 12-08-2019 14:54-0400 Systolic blood pressure 145 mm[Hg] Ceci Stephanie EMPLOYMENT ASSISTANT Work Phone: [employer]; [employer]. Comment on above: Patient Position: Sitting; Cuff Location : Left Arm; Cuff Size: Large 02-15-2018 10:59-0400 Diastolic blood pressure 88 mm[Hg] Francisco Echavarria MD Work Phone: [employer]; [employer]. Comment on above: Patient Position: Sitting; Cuff Location : Left Arm; Cuff Size: Standard 02-15-2018 10:59-0400 Heart rate 99 /min Francisco Echavarria MD Work Phone: [employer]; [employer]. Comment on above: Pattern: Regular 02-15-2018 10:59-0400 Systolic blood pressure 134 mm[Hg] Francisco Echavarria MD Work Phone: [employer].; [employer]. Comment on above: Patient Position: Sitting; Cuff Location : Left Arm; Cuff Size: Standard 02-08-2018 14:53-0400 Body weight 137.89 kg Inbound[employer] Work Phone: [facility]; [employer]. 02-08-2018 14:53-0400 Diastolic blood pressure 95 mm[Hg] Company[employer] Work Phone: [employer]; [employer]. Comment on above: Patient Position: Sitting; Cuff Location : Left Arm; Cuff Size: Large 02-08-2018 14:53-0400 Heart rate 100 /min [employer] Work Phone: [employer]; [employer]. Comment on above: Pattern: Regular 02-08-2018 14:53-0400 Systolic blood pressure 143 mm[Hg] Tiange EMPLOYMENT ASSISTANT Work Phone: [employer]; [employer]. Comment on above: Patient Position: Sitting; Cuff Location : Left Arm; Cuff Size: Large 01-25-2018 15:51-0400 Body height 196.22 cm [employer] Work Phone: [facility]; [employer]. 01-25-2018 15:51-0400 Body mass index (BMI) [Ratio] 35.7 kg/m2 [employer] Work Phone: [facility]; [employer]. 01-25-2018 15:51-0400 Body surface area Derived from formula 2.68 m2 Ceci Brown LPN Work Phone: [employer].; [employer]. 01-25-2018 15:51-0400 Body weight 137.44 kg Ceci Brown LPN Work Phone: [employer].; [employer]. 01-25-2018 15:51-0400 Diastolic blood pressure 101 mm[Hg] Ceci Brown LPN Work Phone: [employer].; [employer]. Comment on above: Patient Position: Sitting; Cuff Location : Left Arm; Cuff Size: Large 01-25-2018 15:51-0400 Heart rate 88 /min Ceci Brown LPN Work Phone: [employer].; [employer]. Comment on above: Pattern: Regular 01-25-2018 15:51-0400 Systolic blood pressure 162 mm[Hg] Ceci Brown LPN Work Phone: [employer].; [employer]. Comment on above: Patient Position: Sitting; Cuff Location : Left Arm; Cuff Size: Large 12-13-2017 13:57-0400 Body height 196.22 cm Ceci Brown LPN Work Phone: [employer].; [employer]. 12-13-2017 13:57-0400 Body mass index (BMI) [Ratio] 35.82 kg/m2 Ceci Brown LPN Work Phone: [employer].; [employer]. 12-13-2017 13:57-0400 Body surface area Derived from formula 2.68 m2 Ceci Stephanie EMPLOYMENT ASSISTANT Work Phone: [employer].; [employer]. 12-13-2017 13:57-0400 Body weight 137.89 kg Ceci Stephanie EMPLOYMENT ASSISTANT Work Phone: [employer].; [employer]. 12-13-2017 13:57-0400 Diastolic blood pressure 106 mm[Hg] Ceci Brown EMPLOYMENT ASSISTANT Work Phone: [employer].; [employer]. Comment on above: Patient Position: Sitting; Cuff Location : Left Arm; Cuff Size: Large 12-13-2017 13:57-0400 Heart rate 109 /min Ceci Brown EMPLOYMENT ASSISTANT Work Phone: [employer].; [employer]. Comment on above: Pattern: Regular 12-13-2017 13:57-0400 Systolic blood pressure 155 mm[Hg] Ceci Brown EMPLOYMENT ASSISTANT Work Phone: [employer].; [employer]. Comment on above: Patient Position: Sitting; Cuff Location : Left Arm; Cuff Size: Large 12-12-2016 11:51-0400 Body height 196.22 cm Francisco Echavarria MD Work Phone: [employer].; [employer]. 12-12-2016 11:51-0400 Body mass index (BMI) [Ratio] 36.17 kg/m2 Francisco Echavarria MD Work Phone: [employer].; [employer]. 12-12-2016 11:51-0400 Body surface area Derived from formula 2.69 m2 Francisco Echavarria MD Work Phone: [employer].; [employer]. 12-12-2016 11:51-0400 Body weight 139.26 kg Francisco Echavarria MD Work Phone: [employer].; [employer]. 12-12-2016 11:51-0400 Diastolic blood pressure 102 mm[Hg] Francisco Echavarria MD Work Phone: [employer].; [employer]. Comment on above: Patient Position: Sitting; Cuff Location : Right Arm; Cuff Size: Large 12-12-2016 11:51-0400 Heart rate 105 /min Francisco Echavarria MD Work Phone: [employer].; [employer]. Comment on above: Pattern: Regular 12-12-2016 11:51-0400 Systolic blood pressure 153 mm[Hg] Francisco Echavarria MD Work Phone: [facility].; [employer]. Comment on above: Patient Position: Sitting; Cuff Location : Right Arm; Cuff Size: Large 08-04-2015 09:04-0500 Body height 200.66 cm Karen Alexander LPN [facility], [facility].; [employer]. 08-04-2015 09:04-0500 Body mass index (BMI) [Ratio] 35.75 kg/m2 [facility], [employer].; [place] [employer]. 08-04-2015 09:04-0500 Body surface area Derived from formula 2.77 m2 Karen Alexander LPN [facility], [facility].; [place] [facility]. 08-04-2015 09:04-0500 Body temperature 98.4 [degF] Karen Alexander LPN [place] [facility] CenterMy [employer] [facility].; [employer]. Comment on above: Method: Tympanic 08-04-2015 09:04-0500 Body weight 143.93 kg Karen Alexander LPN [place] [facility], [facility].; [employer] 08-04-2015 09:04-0500 Diastolic blood pressure 96 mm[Hg] Karen Alexander LPN [place] [facility], [employer].; [employer]. Comment on above: Patient Position: Sitting; Cuff Location : Left Arm; Cuff Size: Standard 08-04-2015 09:04-0500 Heart rate 106 /min Karen Alexander LPN [place] [facility] Center[facility] [employer].; [employer]. Comment on above: Pattern: Regular 08-04-2015 09:04-0500 Systolic blood pressure 153 mm[Hg] Karen Alexander LPN [place] [facility], [employer].; [employer]. Comment on above: Patient Position: Sitting; Cuff Location : Left Arm; Cuff Size: Standard 12-15-2014 13:58-0400 Body height 200.66 cm Cheyanne Mendez Hatch PA-C Work Phone: [employer].; [employer]. 12-15-2014 13:58-0400 Body mass index (BMI) [Ratio] 34.47 kg/m2 Cheyanne Mendez Hatch PA-C Work Phone: [employer].; [employer]. 12-15-2014 13:58-0400 Body surface area Derived from formula 2.73 m2 Cheyanne Andrea Hatch PA-C Work Phone: [employer].; [employer]. 12-15-2014 13:58-0400 Body weight 138.8 kg Cheyanne Mendez Hatch PA-C Work Phone: [employer].; [employer]. 12-15-2014 13:58-0400 Diastolic blood pressure 92 mm[Hg] Cheyanne Andrea Hatch PA-C Work Phone: [facility]; [employer]. Comment on above: Patient Position: Sitting; Cuff Location : Left Arm; Cuff Size: Standard 12-15-2014 13:58-0400 Heart rate 90 /min Cheyanne Andrea Hatch PA-C Work Phone: [employer]; [employer]. Comment on above: Pattern: Regular 12-15-2014 13:58-0400 Systolic blood pressure 142 mm[Hg] Cheyanne Andrea Hatch PA-C Work Phone: [employer].; [employer]. Comment on above: Patient Position: Sitting; Cuff Location : Left Arm; Cuff Size: Standard 12-25-2012 17:03-0400 Body height 200.66 cm Francisco Echavarria MD Work Phone: [employer]; [employer]. 12-25-2012 17:03-0400 Body mass index (BMI) [Ratio] 33.8 kg/m2 Francisco Echavarria MD Work Phone: [employer].; [employer]. 12-25-2012 17:03-0400 Body surface area Derived from formula 2.71 m2 Francisco Echavarria MD Work Phone: [employer]; [employer]. 12-25-2012 17:03-0400 Body temperature 98.7 [degF] Francisco Echavarria MD Work Phone: [employer].; [employer]. Comment on above: Method: Tympanic 12-25-2012 17:03-0400 Body weight 136.08 kg Francisco Echavarria MD Work Phone: [employer]; [employer]. 12-25-2012 17:03-0400 Diastolic blood pressure 90 mm[Hg] Francisco Echavarria MD Work Phone: [employer]; [employer]. Comment on above: Patient Position: Sitting; Cuff Location : Left Arm; Cuff Size: Standard 12-25-2012 17:03-0400 Heart rate 100 /min Francisco Echavarria MD Work Phone: [employer]; [employer]. Comment on above: Pattern: Regular 12-25-2012 17:03-0400 Systolic blood pressure 141 mm[Hg] Francisco Echavarria MD Work Phone: [employer]; [employer]. Comment on above: Patient Position: Sitting; Cuff Location : Left Arm; Cuff Size: Standard 02-24-2010 14:30-0400 Body temperature 97.8 [degF] Francisco Echavarria MD Work Phone: [employer].; [employer]. Comment on above: Method: Tympanic 02-24-2010 14:30-0400 Body weight 136.99 kg Francisco Echavarria MD Work Phone: [employer].; [employer]. 02-24-2010 14:30-0400 Diastolic blood pressure 78 mm[Hg] Francisco Echavarria MD Work Phone: [facility]; [employer]. Comment on above: Patient Position: Sitting; Cuff Location : Right Arm; Cuff Size: Standard 02-24-2010 14:30-0400 Heart rate 96 /min Francisco Echavarria MD Work Phone: [employer]; [employer]. Comment on above: Pattern: Regular 02-24-2010 14:30-0400 Systolic blood pressure 127 mm[Hg] Francisco Echavarria MD Work Phone: [employer]; [employer]. Comment on above: Patient Position: Sitting; Cuff Location : Right Arm; Cuff Size: Standard Encounters Encounter Date Encounter Type Care Provider Facility Start: 11-11-2024 ambulatory Francisco Echavarria [facility] ty:[facility] Start: 10-03-2024 End: 10-03-2024 ambulatory Francisco Echavarria Facility:[facility] Start: 09-26-2024 End: 09-26-2024 Orders Francisco Echavarria MD Work Phone: [employer] Start: 08-20-2024 End: 08-20-2024 Office outpatient visit 15 minutes Francisco Echavarria MD Work Phone: [employer] Start: 08-20-2024 Follow-up encounter Francisco tanner MD Work Phone: [facility] Start: 08-15-2024 End: 08-15-2024 Telephone follow-up Francisco Echavarria MD Work Phone: [employer] Start: 08-14-2024 End: 08-15-2024 Emergency department patient visit PATRICIA THAYER MD [facility] Start: 05-09-2024 End: 05-09-2024 Patient encounter procedure Francisco Echavarria MD Work Phone: [employer] Start: 04-28-2024 End: 04-28-2024 Orders Francisco Echaavrria MD [facility] Phone: [facility] Start: 03-28-2024 End: 03-28-2024 ambulatory [facility] Facility:[facility] Start: 02-22-2024 End: 02-22-2024 Orders Francisco Echavarria MD Work Phone: [facility] Start: 02-20-2024 End: 02-20-2024 Orders Francisco Echavarria MD Work Phone: [facility] Start: 12-07-2023 End: 12-07-2023 ambulatory [facility] Facility:[facility] Start: 09-20-2023 End: 09-21-2023 ambulatory [facility] Start: 09-20-2023 End: 09-21-2023 Encounter for other preprocedural examination [facility] Start: 04-13-2023 End: 04-13-2023 Historical Summary Francisco Echavarria MD Work Phone: [facility] Start: 03-28-2023 End: 03-28-2023 Patient encounter procedure Francisco Echavarria MD Work Phone: [facility] Start: 02-06-2023 End: 02-07-2023 Orders Francisco Echavarria MD Work Phone: [facility] Start: 10-11-2022 End: 10-11-[address] Francisco Echavarria Work Phone: [facility] Work Phone: Start: 09-05-2022 End: 09-05-[address] Francisco Echavarria Work Phone: [facility] Work Phone: Start: 09-05-2022 End: 09-05-[address] Francisco Echavarria Work Phone: [facility] Work Phone: Start: 07-12-2022 End: 07-12-2022 Patient encounter procedure Francisco Echavarria MD Work Phone: [facility] Start: 05-16-2022 Non-patient / Non-visit PASuzie ABBOTT Work Phone: [facility] Start: 05-16-2022 End: 05-16-2022 Admission to same day surgery center PA-N[facility] De Jesus [facility] Start: 05-16-2022 End: 05-16-2022 ambulatory PA-Niko De Jesus PA Work Phone: [facility] Work Phone: Start: 04-12-2022 End: 04-12-2022 Patient encounter procedure PA-Niko De Jesus PA Work Phone: [facility] Start: 04-03-2022 End: 04-03-2022 Patient encounter procedure PA-Niko De Jesus PA Work Phone: [facility] Start: 02-13-2022 End: 02-13-2022 Patient encounter procedure PA-Niko De Jesus PA Work Phone: [facility] Start: 01-31-2022 End: 01-31-2022 Medication Francisco Echavarria MD Work Phone: [facility] Start: 01-30-2022 End: 01-30-2022 Periodic preventive med est patient 40-64yrs Francisco Echavarria MD Work Phone: [facility] Start: 10-19-2021 End: 10-19-2021 Historical Summary Francisco Echavarria MD Work Phone: [facility] Start: 10-18-2021 End: 10-18-2021 ambulatory TIAGO ANDREWS [facility] Start: 09-19-2021 End: 09-19-2021 Emergency department patient visit RIAZ KAISER [facility] Start: 02-11-2021 End: 02-11-2021 ambulatory PANKAJ Denny [facility] Start: 12-10-2020 End: 12-10-2020 Patient encounter procedure Francisco Echavarria MD Work Phone: [facility] Start: 03-19-2020 End: 03-19-2020 Historical Summary Francisco Echavarria MD Work Phone: [facility] Start: 03-04-2020 End: 03-04-2020 Historical Summary Francisco Echavarria MD Work Phone: [facility] Start: 01-19-2020 End: 01-19-2020 Orders Francisco Echavarria MD Work Phone: [facility] Start: 12-11-2019 End: 12-11-2019 Orders Francisco Echavarria MD Work Phone: [facility] Start: 12-10-2019 End: 12-10-2019 Orders Francisco Echavarria MD Work Phone: [facility] Start: 12-08-2019 End: 12-08-2019 Office outpatient visit 25 minutes Francisco Echavarria MD Work Phone: [facility] Start: 02-18-2018 End: 02-18-2018 Nursing evaluation of patient and report Francisco Echavarria MD Work Phone: [facility] Start: 02-08-2018 End: 02-08-2018 Patient encounter procedure Francisco Echavarria MD Work Phone: [facility] Start: 01-25-2018 End: 01-28-2018 Patient encounter procedure Francisco Echavarria MD Work Phone: [facility] Start: 01-04-2018 End: 01-04-2018 Orders Francisco Echavarria MD Work Phone: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 II Status:Active Commen ts:Mother. Father Status:Active Comments:In good health. Hypertension Status:Active Comments:Father. Mother Status:Active Comments:In good health. Diabetes Mellitus Type II Status:Active Commen ts:Mother. Father Status:Active Comments:In good health. Hypertension Status:Active Comments:Father. Mother Status:Active Comments:In good health. Diabetes Mellitus Type II Status:Active Commen ts:Mother. Father Status:Active Comments:In good health. Hypertension Status:Active Comments:Father. Mother Status:Active Comments:In good health. Diabetes Mellitus Type II Status:Active Commen ts:Mother. Father Status:Active Comments:In good health. Hypertension Status:Active Comments:Father. Mother Status:Active Comments:In good health. Diabetes Mellitus Type II Status:Active Commen ts:Mother. Father Status:Active Comments:In good health. Hypertension Status:Active Comments:Father. Mother Status:Active Comments:In good health. Diabetes Mellitus Type II Status:Active Commen ts:Mother. Father Status:Active Comments:In good health. Hypertension Status:Active Comments:Father. Mother Status:Active Comments:In good health. Diabetes Mellitus Type II Status:Active Commen ts:Mother. Father Status:Active Comments:In good health. Hypertension Status:Active Comments:Father. Mother Status:Active Comments:In good health. Diabetes Mellitus Type II Status:Active Commen ts:Mother. Father Status:Active Comments:In good health. Hypertension Status:Active Comments:Father. Mother Status:Active Comments:In good health. Diabetes Mellitus Type II Status:Active Commen ts:Mother. Father Status:Active Comments:In good health. Hypertension Status:Active Comments:Father. Mother Status:Active Comments:In good health. Diabetes Mellitus Type II Status:Active Commen ts:Mother. Father Status:Active Comments:In good health. Hypertension Status:Active Comments:Father. Mother Status:Active Comments:In good health. Diabetes Mellitus Type II Status:Active Commen ts:Mother. Father Status:Active Comments:In good health. Hypertension Status:Active Comments:Father. Mother Status:Active Comments:In good health. Diabetes Mellitus Type II Status:Active Commen ts:Mother. Father Status:Active Comments:In good health. Hypertension Status:Active Comments:Father. Mother Status:Active Comments:In good health. Advance Directives No Advanced Directives Records Found Advance Directive Response Recorded Date/ Time Living Will No May 09 10:24am Power of Office Equipment Technician No May 09, 2022 10:24am Advance Directive Response Recorded Date/ Time Living Will No June 26 4:58pm Power of Office Equipment Technician No June 26, 2022 4:58pm Chief Complaint and Reason for Visit Chief Complaint Left knee LEFT KNEE right knee LT KNEE MEDIAL MENISECTOMY LT KNEE MEDIAL MENISECTOMY Reason for Visit [id number] Sprain of unspecified site of left knee, initial encounter Sprain of unspecified site of left knee, initial encounter Osteoarthritis of right knee Chief Complaint LEFT KNEE ORTHO CARE / RX HERE RIGHT KNEE Reason for Visit Osteoarthritis of ri ght knee Additional Source Comments (unrecognized sect ion and content) No Status Records FoundNo Status Records FoundNo Status Records FoundNo Status Records FoundNo Status Records Found INFORMATION SOURCE (unrecogn ized section and content) DATE CREATED AUTHOR 10/21/2021 [facility] DATE CREATED AUTHOR AUTHOR'S ORGANIZ ATION 09/24/2023 [facility] DATE CREATED AUTHOR AUTHOR'S ORGANIZ ATION 05/01/2024 [facility] DATE CREATED AUTHOR AUTHOR'S ORGANIZ ATION 08/26/2024 [facility] DATE CREATED AUTHOR AUTHOR'S ORGANIZ ATION 11/11/2024 [facility] Care Teams (unrecognized sec tion and content) Team Status: Active Member Role Status Dates Cheyanne ABBOTT PA-C Family Provider Active Dr. Francisco Echavarria MD Primary Care Provider Active Team Status: Inactive Member Role Status Dates Dr. Francisco Echavarria MD Primary Care Provider, Refer ring Provider Active Dr. Killian Rudd DO Attending Provider Active Team Status: Inactive Member Role Status Dates Dr. Francisco Echavarria MD Primary Care Provider Active Joseph ABBOTT PA Attending Provider, Referring Prov ider Active Goals (unrecognized section and content) Goals may be documented in a n alternate section No data available for this section FOR RECORDS PERTAINING TO PATIENTS WHO ARE OR HAVE BEEN ENROLLED IN A CHEMICAL DEPENDENCY/SUBSTANCEABUSE PROGRAM, SOME INFORMATION MAY BE OMITTED. This clinical summary was aggregated from multiple sources. Caution should be exercised in using it in the provision of clinical care. This summary normalizes information from multiple sources, and as a consequence, information in this document may materially change the coding, format and clinical context of patient data. In addition, data may be omitted in some cases. CLINICAL DECISIONS SHOULD BE BASED ON THE PRIMARY CLINICAL RECORDS. [email or web address] provides no warranty or guarantee of the accuracy or completeness of information in this document.
--- NOTE | 2024-11-11 06:30 | RAD_ITS ---
PROCEDURE: ORBITS FOR FOREIGN BODY 11/11/2024 REASON FOR EXAM: HX: REMOVAL OF METAL TO EYES TECHNIQUE: 2 view(s) of the facial bones COMPARISON: None. FINDINGS: Normal bilateral frontozygomatic and zygomatic-temporal arches. Normal bilateral medial and inferior orbital strong. Normal bilateral orbits. Normal visualized nasal bones. Normal anterior nasal spine. The remaining visualized osseous structures are normal. Normal visualized paranasal sinuses. RAD/Orbits for Foreign Body IMPRESSION: No radiopaque foreign body is seen. Reading [facility]
--- NOTE | 2024-11-11 06:36 | MRI_ITS ---
PROCEDURE: UPPER EXT JOINT ONLY(ROUTINE) 11/11/2024 REASON FOR EXAM: PAIN TECHNIQUE: T1, T2, stir, MRI of the left wrist. Multiplanar and multisequence images were obtained without IV contrast administration. 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 There is complete tear of the dorsal and volar scapholunate ligaments, with widening of the scapholunate articulation to 0.4 cm. 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 There is no occult fracture. There is a 0.5 cm subcortical cyst or erosion in the triquetral. Effusion: There is a trace effusion of the distal radioulnar joint. There is mild fluid distention of the pre styloid recess. Soft Tissues: There is no soft tissue mass. There is no visible tear in the triangular fibrocartilage. Ligaments and Tendons: The flexor and extensor tendons appear intact. The carpal tunnel and median nerve are within normal limits. 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 There is complete tear of the dorsal and volar scapholunate ligaments, with wid ening of the scapholunate articulation to 0.4 cm. 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 There is a 0.5 cm subcortical cyst or erosion in the triquetral. There is a trace effusion of the distal radioulnar joint. There is mild fluid distention of the pre styloid recess. Reading Location: [facility]
== END | disposition home or self-care (01) ==
LOC: OPMRI 06:12
PROVIDERS: PCP Family Medicine; Referring Provider Orthopaedic Surgery; Visit Provider Orthopaedic Surgery
DX: M18.12 Unilateral primary osteoarthritis of first carpometacarpal joint, left hand (principal)
CPT/HCPCS: 70030; 73221

== ENCOUNTER → 2025-05-04 | Outpatient (CLI) | payer OTHER, SELFPAY ==
[2025-05-04 10:47] LABS: Anion Gap 11 (5-15); BUN 14 mg/dL (4-19); BUN/Creat Ratio 18.6 RATIO (10-20); Calcium,Total 9.7 mg/dL (7.6-11.0); Carbon Dioxide 27.9 mmol/L (21.0-32.0); Chloride 99 mmol/L (98-108); Cholesterol 164 mg/dL (<=200); Glucose 108 mg/dL (70-99); Low Density Lipoprotein Calc. 87 mg/dL; Potassium 4.0 mmol/L (3.3-5.1); Triglycerides 191 mg/dL; Very Low Density Lipoprotein 38 mg/dL (5-40); cholesterol:hdl ratio screen 3.72
== END | disposition home or self-care (01) ==
LOC: MTLAB 07:51
PROVIDERS: PCP Family Medicine; Referring Provider Family Medicine; Visit Provider Family Medicine
DX: Z13.1 Encounter for screening for diabetes mellitus (principal); E78.2 Mixed hyperlipidemia
CPT/HCPCS: 36415; 80048; 80061